=== PATIENT | male | born 1950 | race Caucasian/White ===

== ENCOUNTER 2017-03-11 15:30 | Emergency (ER) | payer BC ==
[~2017-03-11] VITALS: Ht 182.9 cm; Wt 87.9 kg
[~2017-03-11 15:30] MED LIST: ALBINS/ INH; ALBUAER2 INH; ANORO INH; ASTN NAE; ATEN-173 PEG; CHOL1000 PO; LANS30CA12 PEG; LISI-789 PEG; LORA10TA5 PEG; METF500T5 PEG; NUTRLIQ61 PEG; RANI300T2 PEG; SIMV20TA2 PEG
[2017-03-11 15:37] VITALS: TEMP 36.5; Ht 182.9 cm; Wt 87.9 kg
[2017-03-11] MEDS ORDERED: LIDO/EPINEPHRINE/SOD BICARB 20 ML VIAL INFIL ONE (15:47)
[2017-03-11] MEDS ORDERED: LIDOCAINE/EPINEPHRINE 1% 20 ML VIAL INFIL ONE (16:00)
--- NOTE | 2017-03-11 17:04 | DIAGNOSTIC IMAGING REPORT ---
CT HEAD WITHOUT CONTRAST (CT) CLINICAL HISTORY: Head pain status post trauma COMPARISON STUDY: 08/26/2016 TECHNIQUE: Axial CT of the brain is performed from the vertex to the skull base. IV contrast was not administered for this examination. CT DOSE: 614.27 mGy.cm FINDINGS: No intra or extra-axial mass lesions are visualized. There is no CT evidence of acute cortical infarction. There is no evidence of midline shift. There is no acute hemorrhage. No calvarial fractures are visualized. There are minimal white matter hypodensities likely on a small vessel basis. There is no evidence of pathologic ventricular dilatation. There is an incidental cavum septum posterior and cavum vergae There is no evidence of acute sinusitis. There is mild scalp edema involving the right parietal vertex. There is a small soft tissue laceration involving the frontal vertex. IMPRESSION: No acute intracranial findings Electronically signed by: Sampson Andrew M.D. 03/11/2017 5:03 PM Dictated Date/Time: 03/11/2017 5:00 PM
--- NOTE | 2017-03-11 17:27 | EMERGENCY ROOM VISIT NOTE ---
History First contact with patient: 15:40 Chief Complaint: FALL Stated Complaint: FELL History of Present Illness The patient is a 66 year old male who presents to the Emergency Room with complaints of fall. The patient was at work and was walking toward a file cabinet and tripped over his own feet and fell into the file cabinet. He sustained a large laceration to the face and head. The patient denies striking his head on the floor. He denies any loss of consciousness, nausea or vomiting. He denies any extremity pain or weakness. He denies syncope. She denies any chest pain or trouble breathing. His tetanus is up-to-date. Review of Systems A 10 system review of systems was completed with positives and pertinent negatives listed in the HPI. Past Medical/Surgical History Medical Problems: (1) Aspiration pneumonia (2) HTN (hypertension) (3) Percutaneous endoscopic gastrostomy (4) Tongue cancer Family History FH: cancer Social History Smoking Status: Never Smoker Marital Status: Housing Status: lives with family Occupation Status: employed Current/Historical Medications Scheduled Atenolol (Tenormin), 25 MG PEG QAM Azelastine Hcl (Astelin Nasal [place]), 1 SPRAY FRANDY BID Cholecalciferol (Vitamin D3), 1 TAB PO QAM Enteral Nutrition Formula (Peptamen 1.5), 1 CAN PEG 5XD Lansoprazole (Prevacid), 30 MG PEG QAM Lisinopril (Zestril), 1 TAB PEG QAM Loratadine (Claritin), 10 MG PEG QAM Metformin Hcl Er (Glucophage Er), 500 MG PEG QAM Simvastatin (Zocor), 20 MG PEG QAM Scheduled PRN Albuterol Sulf (Proventil 0.083% 2.5MG/3ML), 2.5 MG INH Q6H PRN for Shortness of Breath Ranitidine Hcl (Zantac), 300 MG PEG HS PRN for ACID REFLUX Allergies Coded Allergies: Bee Venom (Verified Allergy, Severe, HIVES, 04/01/16) Shellfish (Verified Allergy, Intermediate, unkn, 04/01/16) NO KNOWN DRUG ALLERGIES (Verified Allergy, Unknown, ., 04/01/16) Physical Exam Vital Signs Date Time Temp Pulse Resp B/P Pulse Ox O2 Delivery O2 Flow Rate FiO2 03/11/17 17:40 61 18 152/100 98 03/11/17 15:37 36.5 67 18 147/95 97 Room Air Physical Exam VITALS: Vitals are noted on the nurse's note and reviewed by myself. Vital signs stable. GENERAL: This is a 66-year-old male, in no acute distress, nondiaphoretic, well- developed well-nourished. SKIN: The skin was without rashes, erythema, edema, or bruising. There is a very large, 10 cm linear laceration that extends over the center of the forehead and back into the scalp. There is moderate bleeding. The edges gape with traction. There is no tenting of the skin. Capillary reflex less than 2 seconds. HEAD: Normocephalic atraumatic. EARS: External auditory canals clear, tympanic membranes pearly mercado without erythema or effusion bilaterally. No hemotympanum. No greer sign. No mastoid tenderness. EYES: Pupils equal round and reactive to light and accommodation. Conjunctivae without injection, sclerae without icterus. Extraocular movements intact. NOSE: Patent, turbinates without inflammation or discharge. No sinus tenderness. No septal hematoma or bleeding. FACE: No facial tenderness. The left side the face is paralyzed at this is baseline for the patient. MOUTH: Mucous membranes moist. NECK: Supple without nuchal rigidity. Cervical spine is nontender. Full range of motion of the neck without tenderness. No JVD. HEART: Regular rate and rhythm without murmurs gallops or rubs. LUNGS: Clear to auscultation bilaterally without wheezes, rales or rhonchi. No retractions or accessory muscle use. No chest tenderness. MUSCULOSKELETAL: No muscle atrophy, erythema, or edema noted. Full range of motion without joint tenderness in all extremities. No tenderness to palpation. Normal gait. Strength 5/5 throughout. NEURO: Patient was alert and oriented to person place and time. Normal Mini- Mental status exam. No focal neurological deficits. Medical Decision & Procedures ER Provider Diagnostic Interpretation: CT HEAD WITHOUT CONTRAST (CT) CLINICAL HISTORY: Head pain status post trauma COMPARISON STUDY: 08/26/2016 TECHNIQUE: Axial CT of the brain is performed from the vertex to the skull base. IV contrast was not administered for this examination. CT DOSE: 614.27 mGy.cm FINDINGS: No intra or extra-axial mass lesions are visualized. There is no CT evidence of acute cortical infarction. There is no evidence of midline shift. There is no acute hemorrhage. No calvarial fractures are visualized. There are minimal white matter hypodensities likely on a small vessel basis. There is no evidence of pathologic ventricular dilatation. There is an incidental cavum septum posterior and cavum vergae There is no evidence of acute sinusitis. There is mild scalp edema involving the right parietal vertex. There is a small soft tissue laceration involving the frontal vertex. IMPRESSION: No acute intracranial findings Procedure A large 10 cm laceration to the head was repaired. Using sterile technique the wound was cleaned with Betadine. The area was sterilely draped. 6 ml of 1% buffered lidocaine with epinephrine was used to anesthetize the skin. Once the patient was numb, the wound was copiously irrigated under pressure with sterile saline. The wound was explored and there were no deep structures such as tendons, bone, or ligaments present. The laceration was repaired using 17 simple interrupted 6-0 nylon sutures with the wound edges being well approximated. The patient tolerated the procedure well. The bleeding stopped. The area was cleaned with sterile saline and dressed with bacitracin ointment and bandage. ED Course The patient was seen and examined. Previous visits were reviewed. CT scan was obtained as above. There is no evidence for intracranial bleeding or skull fracture. The patient had a very large linear laceration to the forehead that extended into the scalp. It was repaired as above. The patient's was concerned that he lost blood. The patient stated he felt he was fine and did not wish to have blood work done. The patient should have the sutures removed in 6-7 days. He should return to the ER with any worsening symptoms, redness, swelling, warmth, fever, drainage of pus. Medical Decision The differential diagnosis includes intracranial bleeding, skull fracture, contusion, laceration, concussion, among others Impression Primary Impression: Facial laceration Additional Impression: CHI (closed head injury) Departure Information Dispostion Home / Self-Care Condition GOOD Referrals Vinayak Dumont III, M.D. (PCP) Patient Instructions My [facility] Additional Instructions Keep wound clean and dry. Do not allow any crusting or dried blood to accumulate on sutures. If this occurs, use a 1:1 solution of hydrogen peroxide/ water on a Q-tip to clean the wound. Use an antibiotic ointment for 3-4 days, then let wound dry. Suture removal in 7 days. Return sooner for any signs of infection (increasing redness, swelling, drainage). Ice and elevate for swelling and pain. Keep covered when in sun until sutures removed then SPF 50 or higher for one year. Vitamin E oil if desired two weeks after suture removal for reduction of scar. Return with any vomiting, change in mental status, severe headache or generalized worsening symptoms Problem Qualifiers
[2017-03-11 17:40] VITALS: BP 152/100; PULSE 61; O2SAT 98
[2017-03-20] MEDS ORDERED: ATV/1 PO (09:58)
[2017-03-20] MEDS ORDERED: AMOX1SUS4 PO (09:58)
== END 2017-03-11 17:50 | disposition home or self-care (01) ==
LOC: C.EDB 15:35 → C.EDD 17:50
DX: S01.81XA Laceration without foreign body of other part of head, initial encounter (principal); S09.90XA Unspecified injury of head, initial encounter; W01.198A Fall on same level from slipping, tripping and stumbling with subsequent striking against other object, initial encounter; Y99.0 Civilian activity done for income or pay; I10 Essential (primary) hypertension; Z85.09 Personal history of malignant neoplasm of other digestive organs

== ENCOUNTER 2017-03-18 11:10 | Observation (INO) | payer BC ==
[~2017-03-18] VITALS: Ht 182.9 cm; Wt 83.0 kg
[~2017-03-18 11:10] MED LIST changes: -ALBUAER2 INH; -ANORO INH
[2017-03-18] MEDS ORDERED: SODIUM CHLORIDE 0.9% 1000ML 500 ML IV STA (11:36)
[2017-03-18 11:58] LABS: BASO % 0.1 %; BASO ABS # 0.02 K/uL (0-0.2); COMPLETE YES; EOS % 0.1 %; IG% 0.3 %; LYMPH % 4.4 %; LYMPH ABS # 0.95 K/uL (1.2-3.4); MEAN CELL VOLUME 87.9 fL (80-100); MEAN CORPUSCULAR HEMOGLOBIN 32.8 pg (25-34); MEAN CORPUSCULAR HGB CONC 37.4 g/dl (32-36); MEAN PLATELET VOLUME 8.6 fL (7.4-10.4); MONO % 10.5 %; NEUT % 84.6 %; PLATELET COUNT 342 K/uL (130-400); RED BLOOD COUNT 4.78 M/uL (4.7-6.1); WHITE BLOOD COUNT 21.53 K/uL (4.8-10.8)
--- NOTE | 2017-03-18 12:00 | DIAGNOSTIC IMAGING REPORT ---
CHEST ONE VIEW PORTABLE CLINICAL HISTORY: EVALUATE ALTERED MENTAL STATUS/WEAKNESS dyspnea COMPARISON STUDY: 08/26/2016 FINDINGS: The bones soft tissues and hemidiaphragms are normal. The cardiomediastinal silhouette is normal. The lungs are clear. The pulmonary vasculature is normal. IMPRESSION: Negative chest. Electronically signed by: Dima Jones M.D. 03/18/2017 11:59 AM Dictated Date/Time: 03/18/2017 11:58 AM
[2017-03-18 12:09] LABS: PARTIAL THROMBOPLASTIN RATIO 1.1; PROTHROMBIN TIME (PATIENT) 10.9 SECONDS (9.0-12.0)
--- NOTE | 2017-03-18 12:10 | DIAGNOSTIC IMAGING REPORT ---
HEAD CT NONCONTRAST CT DOSE: 638.56 mGycm HISTORY: Mental status change EVALUATE ALTERED MENTAL STATUS/WEAKNESS TECHNIQUE: Multiaxial CT images of the head were performed without the use of intravenous contrast. Comparison: None. Findings: The paranasal sinuses and mastoid air cells are clear. The calvarium and skull base are intact. The ventricles and sulci are within normal limits. There is no mass, hematoma, midline shift, or acute infarct. Impression: No acute intracranial abnormality. No change from the prior study. Electronically signed by: Dima Jones M.D. 03/18/2017 12:08 PM Dictated Date/Time: 03/18/2017 12:06 PM
[2017-03-18 12:16] LABS: ALT/SGPT 27 U/L (12-78); AST/SGOT 13 U/L (15-37); BLOOD UREA NITROGEN 22 mg/dl (7-18); BUN/CREATININE RATIO 28.4 (10-20); CALCIUM 9.2 mg/dl (8.5-10.1); CARBON DIOXIDE 30 mmol/L (21-32); CHLORIDE 90 mmol/L (98-107); CREATININE 0.77 mg/dl (0.60-1.40); GLUCOSE 136 mg/dl (70-99); POTASSIUM 3.7 mmol/L (3.5-5.1); SODIUM 126 mmol/L (136-145)
[2017-03-18 12:26] LABS: ALB/GLOB RATIO 1.2 (0.9-2); ALKALINE PHOSPHATASE 74 U/L (45-117)
--- NOTE | 2017-03-18 12:44 | EMERGENCY ROOM VISIT NOTE ---
History Report prepared by [place]: Roshan Gentile Under the Supervision of: Dr. Rip Wilcox M.D. First contact with patient: 11:29 Chief Complaint: ILLNESS Stated Complaint: LACERATION LAST WK W/ SUTURE. TODAY W/ BLACK EYES History of Present Illness The patient is a 66 year old male who presents to the Emergency Room with complaints of increased unsteadiness today. The patient also noticed darkened skin around his eyes today which was not present previously. He has ringing in his ears at baseline which is worse today. The patient has had a cough producing phlegm. He denies fevers, headaches, or vomiting. He has not noticed any changes in his speech from baseline. The patient had a fall one week ago where he hit his head on a filing cabinet. He had a laceration on the top of the head sutured. He has not fallen since then. Source of History: patient Onset: today Position: other (global) Quality: other (unsteady) Timing: other (increased) Associated Symptoms: + cough, No fevers, No headache, No vomiting Review of Systems See HPI for pertinent positives & negatives. A total of 10 systems reviewed and were otherwise negative. Past Medical & Surgical Medical Problems: (1) Aspiration pneumonia (2) Aspiration pneumonia (3) HTN (hypertension) (4) Influenza (5) Percutaneous endoscopic gastrostomy (6) Tongue cancer Surgical Problems: (1) S/P cholecystectomy Family History FH: cancer Social History Smoking Status: Former Smoker Marital Status: Housing Status: lives with family Occupation Status: employed Current/Historical Medications Scheduled Atenolol (Tenormin), 25 MG PEG QAM Azelastine Hcl (Astelin Nasal [place]), 1 SPRAY FRANDY BID Cholecalciferol (Vitamin D3), 1 TAB PO QAM Enteral Nutrition Formula (Peptamen 1.5), 1 CAN PEG 5XD Lansoprazole (Prevacid), 30 MG PEG QAM Lisinopril (Zestril), 1 TAB PEG QAM Loratadine (Claritin), 10 MG PEG QAM Metformin Hcl Er (Glucophage Er), 500 MG PEG QAM Simvastatin (Zocor), 20 MG PEG QAM Scheduled PRN Albuterol Sulf (Proventil 0.083% 2.5MG/3ML), 2.5 MG INH Q6H PRN for Shortness of Breath Ranitidine Hcl (Zantac), 300 MG PEG HS PRN for ACID REFLUX Allergies Coded Allergies: Bee Venom (Verified Allergy, Severe, HIVES, 04/01/16) Shellfish (Verified Allergy, Intermediate, unkn, 04/01/16) NO KNOWN DRUG ALLERGIES (Verified Allergy, Unknown, ., 04/01/16) Physical Exam Vital Signs Date Time Temp Pulse Resp B/P Pulse Ox O2 Delivery O2 Flow Rate FiO2 03/18/17 13:12 86 20 101/69 99 Room Air 03/18/17 12:25 83 18 160/112 95 Room Air 82 127/83 83 101/69 03/18/17 12:20 84 03/18/17 11:16 36.8 82 16 108/66 96 Room Air Physical Exam GENERAL: Patient is in no acute distress. HEENT: Healing laceration to the top of the scalp without signs of infection, sutures in place. Some old contusion about the eyes especially medially. Moist mucous membranes, no nasal congestion. NECK: No stridor, no adenopathy, no meningismus, trachea is midline. LUNGS: Clear to auscultation bilaterally, no wheeze, no rhonchi, breath sounds equal. HEART: Without murmurs gallops or rubs, regular rate and rhythm. ABDOMEN: Soft, nontender, bowel sounds positive, no hernias, no peritonitis. EXTREMITIES: No cyanosis or edema, full range of motion of all the joints without pain or difficulty, no signs for acute trauma. NEUROLOGIC: Oriented x 3, no acute motor or sensory deficits, no focal weakness , no pronator drift, no cerebellar dysfunction. SKIN: No rash, no jaundice, no diaphoresis. Medical Decision & Procedures ER Provider Diagnostic Interpretation: Orthostatic vital signs are positive. Radiology results as stated below per my review and radiologist interpretation: CHEST ONE VIEW PORTABLE CLINICAL HISTORY: EVALUATE ALTERED MENTAL STATUS/WEAKNESS dyspnea COMPARISON STUDY: 08/26/2016 FINDINGS: The bones soft tissues and hemidiaphragms are normal. The cardiomediastinal silhouette is normal. The lungs are clear. The pulmonary vasculature is normal. IMPRESSION: Negative chest. Electronically signed by: Dima Jones M.D. 03/18/2017 11:59 AM Dictated Date/Time: 03/18/2017 11:[address] CT DOSE: 638.56 mGycm HISTORY: Mental status change EVALUATE ALTERED MENTAL STATUS/WEAKNESS TECHNIQUE: Multiaxial CT images of the head were performed without the use of intravenous contrast. Comparison: None. Findings: The paranasal sinuses and mastoid air cells are clear. The calvarium and skull base are intact. The ventricles and sulci are within normal limits. There is no mass, hematoma, midline shift, or acute infarct. Impression: No acute intracranial abnormality. No change from the prior study. Electronically signed by: Dima Jones M.D. 03/18/2017 12:08 PM Dictated Date/Time: 03/18/2017 12:06 PM Laboratory Results 03/18/17 11:40 Red Blood Count 4.78, Mean Corpuscular Volume 87.9, Mean Corpuscular Hemoglobin 32.8, Mean Corpuscular Hemoglobin Concent 37.4, Mean Platelet Volume 8.6, Neutrophils (%) (Auto) 84.6, Lymphocytes (%) (Auto) 4.4, Monocytes (%) (Auto) 10.5, Eosinophils (%) (Auto) 0.1, Basophils (%) (Auto) 0.1, Neutrophils # (Auto ) 18.20, Lymphocytes # (Auto) 0.95, Monocytes # (Auto) 2.27, Eosinophils # (Auto ) 0.02, Basophils # (Auto) 0.02 03/18/17 11:40 Test 03/18/17 11:40 03/18/17 12:15 03/18/17 12:44 White Blood Count 21.53 K/uL (4.8-10.8) Red Blood Count 4.78 M/uL (4.7-6.1) Hemoglobin 15.7 g/dL (14.0-18.0) Hematocrit 42.0 % (42-52) Mean Corpuscular Volume 87.9 fL (80-100) Mean Corpuscular Hemoglobin 32.8 pg (25-34) Mean Corpuscular Hemoglobin Concent 37.4 g/dl (32-36) Platelet Count 342 K/uL (130-400) Mean Platelet Volume 8.6 fL (7.4-10.4) Neutrophils (%) (Auto) 84.6 % Lymphocytes (%) (Auto) 4.4 % Monocytes (%) (Auto) 10.5 % Eosinophils (%) (Auto) 0.1 % Basophils (%) (Auto) 0.1 % Neutrophils # (Auto) 18.20 K/uL (1.4-6.5) Lymphocytes # (Auto) 0.95 K/uL (1.2-3.4) Monocytes # (Auto) 2.27 K/uL (0.11-0.59) Eosinophils # (Auto) 0.02 K/uL (0-0.5) Basophils # (Auto) 0.02 K/uL (0-0.2) RDW Standard Deviation 39.5 fL (36.4-46.3) RDW Coefficient of Variation 12.2 % (11.5-14.5) Immature Granulocyte % (Auto) 0.3 % Immature Granulocyte # (Auto) 0.07 K/uL (0.00-0.02) Prothrombin Time 10.9 SECONDS (9.0-12.0) Prothromb Time International Ratio 1.0 (0.9-1.1) Activated Partial Thromboplast Time 28.5 SECONDS (21.0-31.0) Partial Thromboplastin Ratio 1.1 Anion Gap 6.0 mmol/L (3-11) Est Creatinine Clear Calc Drug Dose 106.4 ml/min Estimated GFR () 111.2 Estimated GFR (Non- 95.9 BUN/Creatinine Ratio 28.4 (10-20) Calcium Level 9.2 mg/dl (8.5-10.1) Total Bilirubin 0.6 mg/dl (0.2-1) Aspartate Amino Transf (AST/SGOT) 13 U/L (15-37) Alanine Aminotransferase (ALT/SGPT) 27 U/L (12-78) Alkaline Phosphatase 74 U/L (45-117) Troponin I < 0.015 ng/ml (0-0.045) Total Protein 6.9 gm/dl (6.4-8.2) Albumin 3.7 gm/dl (3.4-5.0) Globulin 3.2 gm/dl (2.5-4.0) Albumin/Globulin Ratio 1.2 (0.9-2) Thyroid Stimulating Hormone (TSH) 1.860 uIu/ml (0.300-4.500) Urine Color DK YELLOW Urine Appearance CLEAR (CLEAR) Urine pH 7.0 (4.5-7.5) Urine Specific [place] 1.022 (1.000-1.030) Urine Protein NEG (NEG) Urine Glucose (UA) NEG (NEG) Urine Ketones TRACE (NEG) Urine Occult Blood NEG (NEG) Urine Nitrite NEG (NEG) Urine Bilirubin NEG (NEG) Urine Urobilinogen NEG (NEG) Urine Leukocyte Esterase NEG (NEG) Lactic Acid Level 1.2 mmol/L (0.4-2.0) Laboratory results reviewed by me. Medications Administered Medications (Trade) Dose Ordered Sig/Joey Route Start Time Stop Time Status Last Admin Dose Admin Sodium Chloride 500 ml @ 999 mls/hr Q31M STAT IV 03/18/17 11:36 03/18/17 12:06 DC 03/18/17 11:36 999 MLS/HR Sodium Chloride (Nss 1000ml) 1,000 ml @ 200 mls/hr Q5H STAT IV 03/18/17 12:50 03/18/17 17:49 03/18/17 12:50 200 MLS/HR ECG Indication: other (neuro symptoms) Rate (beats per minute): 77 Rhythm: normal sinus Findings: no acute ischemic change, no ectopy ED Course 1132: The patient was evaluated in room A12b. A complete history and physical exam was performed. 1136: NSS 500 ml @ 999 mls/hr. 1223: Orthostatic vital signs are positive. 1250: NSS 1000 ml @ 200 mls/hr. 1337: Updated the patient. He is willing to stay. He is currently receiving tube feeds. The patient's sutures will be removed by Kentrell Hernandez PA-C. 1341: Discussed the case with Dr. Wing, [facility] Hospitalist. The patient will be evaluated. Medical Decision Differential diagnosis includes intracranial bleeding, dehydration, anemia, electrolyte imbalance, infection, dysrhythmia, stroke. There is a significant leukocytosis at 21,000, this could be consistent with infection. No anemia. Renal panel testing shows hyponatremia, no kidney failure. There was no hepatitis. Urinalysis does not show infection. Brain CT shows no acute bleed or mass effect. Chest x-ray does not show pneumonia or CHF. EKG shows a sinus rhythm, no acute ischemia. On exam, there were no focal neurologic deficits to suggest stroke. The patient was not febrile or toxic. The patient appears to be in a euthyroid state. Lactic acid level is not elevated making severe sepsis less likely. Blood cultures are pending. Cardiac enzyme testing times one is not suggestive of acute cardiac injury. The patient presents with weakness and dizziness and feeling off balance. He is hyponatremic and dehydrated. He is orthostatic, his blood pressure dropped significantly with standing. I did speak with the patient, he feels better since being here in the emergency room. He has received IV saline. He has been able to give himself his typical tube feeds. Given the leukocytosis and his other findings, admission/observation was felt warranted. I spoke to the patient and to case management. The on-call hospitalist was consulted. Consults Time Called: 1330 Consulting Physician: Dr. Wing [facility] Hospitalist Returned Call: 1341 The patient will be evaluated. Impression Primary Impression: Weakness Additional Impressions: Hyponatremia Orthostasis Leukocytosis Scribe Attestation The scribe's documentation has been prepared under my direction and personally reviewed by me in its entirety. I confirm that the note above accurately reflects all work, treatment, procedures, and medical decision making performed by me. Departure Information Dispostion Being Evaluated By Hospitalist Referrals No Doctor, Assigned (PCP) Patient Instructions My [facility] Problem Qualifiers
[2017-03-18] MEDS ORDERED: SODIUM CHLORIDE 0.9% 1000ML 1,000 ML IV STA (12:50)
[2017-03-18 13:12] LABS: URINE APPEARANCE CLEAR (CLEAR); URINE BILIRUBIN NEG (NEG); URINE COLOR DK YELLOW; URINE NITRITE NEG (NEG); URINE SPECIFIC GRAVITY 1.022 (1.000-1.030); UROBILINOGEN NEG (NEG); ZZUR CULT IF INDIC CLEAN CATCH NO
[2017-03-18 13:19] LABS: MANUAL MICROSCOPIC REQUIRED? NO; REVIEW REQ? NO
--- NOTE | 2017-03-18 13:50 | EMERGENCY ROOM VISIT NOTE ---
ED Visit Note I was asked by Dr. Wilcox to remove the 17th sutures that were placed in the patient's head previously. There was a small amount of dried blood covering the wound, but there was adequate wound edge healing. 17 sutures were removed without difficulty. There were no separation of the wound edges. Patient was educated upon management of the wound.
[2017-03-18] MEDS ORDERED: PEPTAMEN 1.5 CAL 1000ML BAG PEG SCH ×2 (14:45→19:00)
[2017-03-18] MEDS ORDERED: ONDANSETRON INJ 2 MG/ML 2 ML VIAL IV PRN (14:45)
[2017-03-18] MEDS ORDERED: ALBUTEROL 0.083% NEBU SOLN 3 ML VIAL INH PRN (14:45)
[2017-03-18] MEDS ORDERED: RANITIDINE HCL 150 MG TAB GT PRN (14:45)
[2017-03-18] MEDS ORDERED: ACETAMINOPHEN 325 MG TAB PO PRN (14:45)
[2017-03-18] MEDS ORDERED: IV FLUIDS COMPLETED PRN (15:15)
--- NOTE | 2017-03-18 16:12 | HISTORY & PHYSICAL EXAMINATION ---
DATE OF ADMISSION: 03/18/2017 PRIMARY CARE PHYSICIAN: Vinayak Dumont MD CHIEF COMPLAINT: Dizziness and lightheadedness noted in doctor's office today. 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 Apparently has had a fall last Tuesday. It was a mechanical fall and he hit his head. He came to the Emergency Room. CAT scan was negative, but he did have laceration on the frontal aspect of the head that was sutured. His suture has to be removed today. He went to see his doctor and in the doctor's office, he was very dizzy and he was noted to have very low blood pressure and he was not feeling well. Apparently, he has not been feeling well for the last 2 days and the condition got worse. From doctor's office, he was sent into Emergency Room and in the ER he was noted to have a low sodium of 126 and he was very hypotensive, especially when tries to stand up, and also his white count noted to be 21,000, but no source of infection. Chest x-ray and the wound and UA examination unremarkable, but given the low sodium and dizziness and postural hypotension; he was admitted to medical floor for continuation of care. PAST MEDICAL HISTORY: Significant for malignant neoplasm of tonsillar fossa, head and neck, status post PEG tube placement for ongoing dysphagia; COPD, mild; hypertension; hyperlipidemia; and hypoglossal nerve paralysis. PAST SURGICAL HISTORY: Significant for PEG tube placement, cholecystectomy and vasectomy. SOCIAL HISTORY: He is . Quit smoking in 1979 with [id number] history of smoking. He does not use any alcohol and he has been reasonably ambulant. FAMILY HISTORY: Father had prostate cancer, at the age of 73. Mother with colon cancer, at the age of 79. Father had diabetes too. REVIEW OF SYSTEMS: CENTRAL NERVOUS SYSTEM: No headache, no blurred vision, no numbness or tingling in the extremities and no weakness in his head in particular. RESPIRATORY: No cough or phlegm. No shortness of breath. CARDIOVASCULAR: No chest pain, palpitation. MUSCULOSKELETAL: No acute arthritis in any joint generally. He did not have any rash and/or enlargement of glands. GENITOURINARY: Moves his bowels every 2-3 days, has not moved his bowels since Tuesday. No problem with urination. CENTRAL NERVOUS SYSTEM: Generally he does have weakness and some constitutional symptoms of tiredness and fatigue, but no fever. ALLERGIES: HE IS ALLERGIC TO BEE VENOM, SHELLFISH. MEDICATIONS: He has been on metformin, albuterol by nebulized solutions, Tenormin 25 mg daily, Astelin nasal spray as directed, vitamin D 1000 units daily, enteral nutritional formula 1 can 5 times a day, Prevacid 30 mg daily, lisinopril 2.5 mg daily, Claritin 10 mg daily, Zantac 300 mg daily, and simvastatin 20 mg daily. PHYSICAL EXAMINATION: GENERAL: On examination in the Emergency Room, he was not having any acute distress. VITAL SIGNS: Temperature 36.8, pulse was 86, blood pressure 101/69, saturation 99. He did have significant postural hypotension, blood pressure went down from 160-101, but there is no change in the heart rate. HEENT: Unremarkable. Head examinations, the sutures are removed from the frontal bone area, does not look like infected: NECK: Some deformity of the neck, but not significant. CHEST: Clear to auscultation bilaterally. HEART: S1, S2 regular. ABDOMEN: PEG tube in situ, benign, no masses. Bowel sounds present. EXTREMITIES: No edema. Peripheral pulses are palpable. A small linear cut brenda on the left patel area, but does not seem to be infected. CENTRAL NERVOUS SYSTEM: Alert, awake, oriented x3. LABORATORY DATA: Noted today white count was 21.53, H\T\H 15.7/42.0, platelet was 342. Sodium 126, potassium 3.7, chloride 90, BUN 22, carbon dioxide 30, creatinine 0.77, random glucose 136. LFTs unremarkable. TSH 1.8, troponin less than 0.01. PT/INR unremarkable. UA examination unremarkable. Chest x-ray, nothing acute. EKG was in sinus rhythm, rate of 77 per minute, normal axis and some nonspecific ST-T wave changes. Chest x-ray clear. IMPRESSION AND PLAN: 1. Hyponatremia. The cause at this moment most likely low intake. He did have diarrhea once on Tuesday. We will give normal saline infusion with some potassium and monitor for response, that may be causing the postural hypotension as well and he does have dehydration as well. 2. Postural hypotension, may be the cause for his weakness and dizziness. He seems to be dry intravascularly, so we will give some IV fluid and monitor his blood pressure. Blood pressure was on the upper side. We will continue with current medications. 3. History of head and neck cancer status post dysphagia and status post PEG tube. We will continue with the PEG tube feeding and medication through the PEG tube. 4. Gastrointestinal prophylaxis with ranitidine and Prevacid. 5. Deep venous thrombosis prophylaxis with subcutaneous heparin. 6. Code status. He is a full code. In my clinical judgment, the beneficiary meets criteria as per CMS for 2 midnight stay in the hospital. MTDD
[2017-03-18 18:40] VITALS: BP 145/96; PULSE 78; TEMP 36.8; O2SAT 94
[2017-03-18] MEDS: HEPARIN SOD 5000 UNIT/0.5 ML CARP SQ SCH (20:48)
[2017-03-18] MEDS: NSS + 20MEQ KCL 1000ML 1,000 ML IV SCH (20:52)
[2017-03-18 23:55] VITALS: BP 146/95; PULSE 81; TEMP 36.7; O2SAT 97
[2017-03-19] VITALS (8 sets, daily range): BP systolic 90–226; BP diastolic 56–129; PULSE 70–86; TEMP 36.7–36.8; O2SAT 94–98; Ht 182.9 cm; Wt 83.0 kg
[2017-03-19] MEDS: NSS + 20MEQ KCL 1000ML 1,000 ML IV SCH ×3 (03:37→18:08)
[2017-03-19] MEDS: PEPTAMEN 1.5 CAL 1000ML BAG PEG SCH ×5 (06:11→17:50)
[2017-03-19 07:25] LABS: BUN/CREATININE RATIO 26.2 (10-20); CALCIUM 8.4 mg/dl (8.5-10.1); CREATININE 0.65 mg/dl (0.60-1.40); MAGNESIUM 2.2 mg/dl (1.8-2.4)
[2017-03-19 08:09] LABS: HEMATOCRIT 39.9 % (42-52); MEAN CELL VOLUME 89.1 fL (80-100); MEAN CORPUSCULAR HEMOGLOBIN 32.1 pg (25-34); MEAN CORPUSCULAR HGB CONC 36.1 g/dl (32-36); MEAN PLATELET VOLUME 8.6 fL (7.4-10.4); PLATELET COUNT 287 K/uL (130-400); RED BLOOD COUNT 4.48 M/uL (4.7-6.1); WHITE BLOOD COUNT 11.13 K/uL (4.8-10.8)
[2017-03-19] MEDS: LANSOPRAZOLE SOLUTAB 30 MG PEG SCH (09:39)
[2017-03-19] MEDS: CHOLECALCIFEROL 1000 INTER.UNIT TAB PEG SCH (09:40)
[2017-03-19] MEDS: LISINOPRIL 2.5 MG TAB PEG SCH (09:40)
[2017-03-19] MEDS: SIMVASTATIN 20 MG TAB PEG SCH (09:41)
--- NOTE | 2017-03-19 09:55 | DIAGNOSTIC IMAGING REPORT ---
CHEST 2 VIEWS ROUTINE HISTORY: Dyspnea. COMPARISON: Chest 03/18/2017. FINDINGS: Left lung is clear. Patchy densities at the base of the right middle lobe. This has improved. The heart is normal in size. Cholecystectomy. No pleural effusions. No pneumothorax. IMPRESSION: Patchy densities within the base of the right middle lobe which have improved. This favors resolving atelectasis. However, a pneumonia could also have a similar appearance. One month chest x-ray follow-up is recommended to ensure complete resolution. Electronically signed by: Tayo Crespo M.D. 03/19/2017 9:54 AM Dictated Date/Time: 03/19/2017 9:51 AM
[2017-03-19] MEDS: HEPARIN SOD 5000 UNIT/0.5 ML CARP SQ SCH ×2 (09:59→21:20)
[2017-03-19] MEDS: LORATADINE 1 MG/1 ML PEG SCH (12:18)
[2017-03-19] MEDS: HydrALAZINE HCL 20 MG/ML VIAL IV. PRN ×2 (13:08→21:02)
--- NOTE | 2017-03-19 14:22 | DIAGNOSTIC IMAGING REPORT ---
Brain MRI WITH AND WITHOUT CONTRAST HISTORY: Right sided numbness R/O CVA TECHNIQUE: Multiplanar multisequence MRI of the brain was performed both before and after the intravenous administration of contrast. COMPARISON STUDY: Head CT 03/18/2017. FINDINGS: There is no mass, hematoma, midline shift, or acute infarct. The paranasal sinuses are clear. The mastoid air cells are clear. The ventricles and sulci demonstrate mild age-related involutional changes. A few foci of T2 hyperintensity seen within the periventricular and subcortical white matter are nonspecific but suggestive of minimal microvascular ischemic changes. The major vascular flow voids at the skull base are well-maintained. No abnormal enhancement. IMPRESSION: No acute intracranial abnormality. Electronically signed by: Tyao Crespo M.D. 03/19/2017 2:20 PM Dictated Date/Time: 03/19/2017 2:15 PM
--- NOTE | 2017-03-19 16:25 | Progress Note ---
Internal Med Progress Note Date of Service: March 19, 2017. Provider Documentation: SUBJECTIVE: Patient is seen and examined at bedside. He states having dizziness and says " My right side feels different" States having numbness and dizziness mainly since fall last week. MRI brain showed no acute findings. Also states having chest congestion. Family at bedside OBJECTIVE: Vital Signs-as noted below Physical Exam: General Appearance:Moderately built and nourished, no apparent distress Head: normocephalic, Atraumatic Eyes: normal inspection, EOMI, PERRL Neck: supple, Trachea midline Respiratory/Chest: Normal breath sounds, minimal creps at bases Cardiovascular: S1, S2, No murmur Abdomen/GI:Soft, Non tender, Bowel sounds present, +PEG tube Extremities/Musculoskelatal:normal inspection, no Neurologic/Psych:AAOX3, grossly no focal neurological deficits Skin: A small linear healing wound on left patel Lab data as noted below. ASSESSMENT & PLAN: Hyponatremia: Likely secondary to GI loses and Excess free water through Tube feeds Sodium levels improved Decreased IV fulids Monitor sodium levels Possible Aspiration pneumonia Start on Augmentin Aspiration precautions No signs of sepsis Dizziness/Postural hypotension: Likely secondary to dehydration Currently Hypertensive after IV fluids CT Head/Mri: No acute pathology May need ENT eval as outpatient as complains of tinnitus H/O Head and neck cancer: S/P radiation: Dysphagia S/P PEG tube Continue tube feeds Consult Dean Of [employer] HTN: Continue home meds Hydralazine PRN DVT px: SQ heparin Code status: full code Disposition: Plan to discharge in next 48 hours if stable Vital Signs: Date Time Temp Pulse Resp B/P Pulse Ox O2 Delivery O2 Flow Rate FiO2 03/19/17 15:00 36.8 72 18 164/103 98 Room Air 03/19/17 12:30 226/124 03/19/17 08:00 Room Air 03/19/17 07:38 36.7 86 20 158/97 94 03/19/17 02:01 36.8 78 145/96 Room Air 03/19/17 00:00 94 Room Air 03/18/17 23:55 36.7 81 20 146/95 97 Room Air 03/18/17 18:40 36.8 78 18 145/96 94 Room Air 03/18/17 18:05 80 20 114/72 94 03/18/17 16:35 78 21 142/85 96 Lab Results: Results Past 24 Hours Test 03/19/17 05:40 Range/Units White Blood Count 11.13 4.8-10.8 K/uL Red Blood Count 4.48 4.7-6.1 M/uL Hemoglobin 14.4 14.0-18.0 g/dL Hematocrit 39.9 42-52 % Mean Corpuscular Volume 89.1 80-100 fL Mean Corpuscular Hemoglobin 32.1 25-34 pg Mean Corpuscular Hemoglobin Concent 36.1 32-36 g/dl RDW Standard Deviation 40.3 36.4-46.3 fL RDW Coefficient of Variation 12.5 11.5-14.5 % Platelet Count 287 130-400 K/uL Mean Platelet Volume 8.6 7.4-10.4 fL Sodium Level 132 136-145 mmol/L Potassium Level 4.0 3.5-5.1 mmol/L Chloride Level 97 98-107 mmol/L Carbon Dioxide Level 27 21-32 mmol/L Anion Gap 8.0 3-11 mmol/L Blood Urea Nitrogen 17 7-18 mg/dl Creatinine 0.65 0.60-1.40 mg/dl Est Creatinine Clear Calc Drug Dose 126.0 ml/min Estimated GFR () 119.2 Estimated GFR (Non- 102.8 BUN/Creatinine Ratio 26.2 10-20 Random Glucose 115 70-99 mg/dl Calcium Level 8.4 8.5-10.1 mg/dl Magnesium Level 2.2 1.8-2.4 mg/dl
[2017-03-19] MEDS ORDERED: AMOXICILLIN/CLAVULANATE TAB 875 MG TAB PO SCH (17:00)
[2017-03-19] MEDS ORDERED: AMOXICILLIN/CLAVULANATE SUSP 250 MG/5 ML PO SCH (20:00)
[2017-03-19] MEDS: AMOXICILLIN/CLAVULANATE SUSP 250 MG/5 ML PO SCH (21:13)
[2017-03-19] MEDS ORDERED: LORAZEPAM 2 MG/ML 1 ML VIAL IV PRN (21:15)
[2017-03-19] MEDS: LORAZEPAM INJ 0.5 MG in SYRINGE 0.75 ML IV PRN (21:50)
[2017-03-20 00:15] VITALS: BP 133/87; PULSE 83; TEMP 36.7; O2SAT 98
[2017-03-20] MEDS: HydrALAZINE HCL 20 MG/ML VIAL IV. PRN (04:08)
[2017-03-20] MEDS: NSS + 20MEQ KCL 1000ML 1,000 ML IV SCH ×2 (04:14→07:13)
[2017-03-20 04:28] VITALS: BP 194/121
[2017-03-20] MEDS: LORAZEPAM INJ 0.5 MG in SYRINGE 0.75 ML IV PRN (04:42)
[2017-03-20] MEDS: AMOXICILLIN/CLAVULANATE SUSP 250 MG/5 ML PO SCH (06:15)
[2017-03-20] MEDS: PEPTAMEN 1.5 CAL 1000ML BAG PEG SCH ×3 (06:15→11:47)
[2017-03-20 06:26] LABS: BUN/CREATININE RATIO 25.6 (10-20); CALCIUM 8.4 mg/dl (8.5-10.1); CREATININE 0.7 mg/dl (0.60-1.40)
[2017-03-20 06:33] VITALS: BP 132/72; PULSE 85
[2017-03-20] MEDS ORDERED: METFORMIN HCL 500 MG TAB PEG SCH (08:00)
[2017-03-20 08:34] VITALS: BP 166/99; PULSE 103; TEMP 36.4; O2SAT 95
[2017-03-20 09:04] VITALS: BP 158/93; PULSE 102
[2017-03-20] MEDS: LORATADINE 1 MG/1 ML PEG SCH (09:05)
[2017-03-20] MEDS: LANSOPRAZOLE SOLUTAB 30 MG PEG SCH (09:07)
[2017-03-20] MEDS: CHOLECALCIFEROL 1000 INTER.UNIT TAB PEG SCH (09:08)
[2017-03-20] MEDS: LISINOPRIL 2.5 MG TAB PEG SCH (09:09)
[2017-03-20] MEDS: SIMVASTATIN 20 MG TAB PEG SCH (09:09)
[2017-03-20] MEDS: HEPARIN SOD 5000 UNIT/0.5 ML CARP SQ SCH (09:35)
--- NOTE | 2017-03-20 09:43 | Progress Note ---
Internal Med Progress Note Date of Service: March 20, 2017. Provider Documentation: SUBJECTIVE: Patient is seen and examined at bedside. States feeling much better. Dizziness resolved. Chest congestion improved. States having anxiety since fall. Denies chest pain, SOB. Offers no other complaints. Family at bedside OBJECTIVE: Vital Signs-as noted below Physical Exam: General Appearance:Moderately built and nourished, no apparent distress Head: normocephalic, Atraumatic Eyes: normal inspection, EOMI, PERRL Neck: supple, Trachea midline Respiratory/Chest: Normal breath sounds, CTA Cardiovascular: S1, S2, No murmur Abdomen/GI:Soft, Non tender, Bowel sounds present, +PEG tube Extremities/Musculoskelatal:normal inspection, no Neurologic/Psych:AAOX3, grossly no focal neurological deficits Skin: A small linear healing wound on left patel Lab data as noted below. ASSESSMENT & PLAN: Hyponatremia: Likely secondary to GI loses and Excess free water through Tube feeds Sodium levels improved: 134 DC IV fluids Monitor sodium levels Possible Aspiration pneumonia H/O Vocal cord paralysis Continue Augmentin Aspiration precautions No signs of sepsis Needs follow up with ENT as outpatient Dizziness/Postural hypotension: Likely secondary to dehydration/Sodium levels CT Head/Mri: No acute pathology Needs ENT eval as outpatient as complains of tinnitus BP labile like anxiety contributing to it. H/O Head and neck cancer: S/P radiation: Dysphagia S/P PEG tube Continue tube feeds Consult Bromination Equipment Operator HTN: Continue home meds Hydralazine PRN Labile likely secondary to anxiety Start on Ativan PRN DVT px: SQ heparin Code status: full code Disposition: Plan to discharge home today Follow up with in 1 week as advised. Please call for appointment if you don't receive call from 's Office. Follow up with Field Artillery Cannoneer, your Neurologist and Bromination Equipment Operator as advised Complete the antibiotic course as prescribed Seek immediate medical attention if your symptoms reoccur or worsen Vital Signs: Date Time Temp Pulse Resp B/P Pulse Ox O2 Delivery O2 Flow Rate FiO2 03/20/17 09:04 102 158/93 03/20/17 08:34 36.4 103 20 166/99 95 03/20/17 06:33 85 132/72 03/20/17 04:28 194/121 03/20/17 00:15 36.7 83 18 133/87 98 Room Air 03/19/17 23:59 Room Air 03/19/17 22:30 73 92/56 03/19/17 20:50 198/129 03/19/17 20:00 Room Air 03/19/17 17:48 71 108/69 70 106/70 72 90/56 03/19/17 16:00 Room Air 03/19/17 15:00 36.8 72 18 164/103 98 Room Air 03/19/17 12:30 226/124 Lab Results: Results Past 24 Hours Test 03/20/17 05:12 Range/Units Sodium Level 134 136-145 mmol/L Potassium Level 4.0 3.5-5.1 mmol/L Chloride Level 100 98-107 mmol/L Carbon Dioxide Level 27 21-32 mmol/L Anion Gap 7.0 3-11 mmol/L Blood Urea Nitrogen 18 7-18 mg/dl Creatinine 0.70 0.60-1.40 mg/dl Est Creatinine Clear Calc Drug Dose 117.0 ml/min Estimated GFR () 115.6 Estimated GFR (Non- 99.7 BUN/Creatinine Ratio 25.6 10-20 Random Glucose 136 70-99 mg/dl Calcium Level 8.4 8.5-10.1 mg/dl
[2017-03-20] MEDS ORDERED: ATV/1 PO (09:58)
[2017-03-20] MEDS ORDERED: AMOX1SUS4 PO (09:58)
--- NOTE | 2017-03-20 10:03 | Discharge Summary ---
Discharge Summary Date of Service March 20, 2017. Discharge Summary Admission Date: March 18, 2017 at 14:43 Discharge Date: March 20, 2017 Discharge Disposition: Home Principal Diagnosis: Hyponatremia, Possible Aspiration Pneumonia Procedures: MRI Dane: No acute intracranial abnormality. CXR: Patchy densities within the base of the right middle lobe which have improved. This favors resolving atelectasis. However, a pneumonia could also have a similar appearance. One month chest x-ray follow-up is recommended to ensure complete resolution. Consultations: None Pending Studies/Follow-Up: Follow up with in 1 week as advised. Please call for appointment if you don't receive call from 's Office. Follow up with Paint Line Supervisor, your Neurologist and Underwriting Analyst as advised Complete the antibiotic course as prescribed Seek immediate medical attention if your symptoms reoccur or worsen Medication Reconciliation New Medications: Lorazepam (Ativan) 1 Mg Tab 0.5 MG PO TID PRN for Anxiety/Agitation for 7 Days, #10 TAB Amoxicillin & Pot Clavulanate (Amoxicillin/Clavulanate P) 1 Gerri Gerri 500 MG PO Q8 for 6 Days, #3 BTL Take 10ml via PEG tube every 8 hours for 6 days Continued Medications: Albuterol Sulf (Proventil 0.083% 2.5MG/3ML) 2.5 Mg/3 Ml Nebu 2.5 MG INH Q6H PRN for Shortness of Breath, EA Atenolol (Tenormin) 25 Mg Tab 25 MG PEG QAM, TAB Azelastine Hcl (Astelin Nasal Deshler) 200 Sprays/30 Ml Deshler 1 SPRAY FRANDY BID, #30 Cholecalciferol (Vitamin D3) 1,000 Unit Tab 1 TAB PO QAM for 90 Days, #90 TAB 3 Refills Enteral Nutrition Formula (Peptamen 1.5) 1 Can Liqd 1 CAN PEG 5XD, CAN Lansoprazole (Prevacid) 30 Mg Capcr 30 MG PEG QAM, CAP Lisinopril (Zestril) 2.5 Mg Tab 1 TAB PEG QAM Loratadine (Claritin) 10 Mg Tab 10 MG PEG QAM, TAB Metformin Hcl Er (Glucophage Er) 500 Mg Tab 500 MG PEG QAM, TAB Ranitidine Hcl (Zantac) 300 Mg Tab 300 MG PEG HS PRN for ACID REFLUX, TAB Simvastatin (Zocor) 20 Mg Tab 20 MG PEG QAM, TAB Admission Information HPI (per Admitting provider): CHIEF COMPLAINT: Dizziness and lightheadedness noted in doctor's office today. 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 Apparently has had a fall last Tuesday. It was a mechanical fall and he hit his head. He came to the Emergency Room. CAT scan was negative, but he did have laceration on the frontal aspect of the head that was sutured. His suture has to be removed today. He went to see his doctor and in the doctor's office, he was very dizzy and he was noted to have very low blood pressure and he was not feeling well. Apparently, he has not been feeling well for the last 2 days and the condition got worse. From doctor's office, he was sent into Emergency Room and in the ER he was noted to have a low sodium of 126 and he was very hypotensive, especially when tries to stand up, and also his white count noted to be 21,000, but no source of infection. Chest x-ray and the wound and UA examination unremarkable, but given the low sodium and dizziness and postural hypotension; he was admitted to medical floor for continuation of care. Physical Exam (per Admitting): PHYSICAL EXAMINATION: GENERAL: On examination in the Emergency Room, he was not having any acute distress. VITAL SIGNS: Temperature 36.8, pulse was 86, blood pressure 101/69, saturation 99. He did have significant postural hypotension, blood pressure went down from 160-101, but there is no change in the heart rate. HEENT: Unremarkable. Head examinations, the sutures are removed from the frontal bone area, does not look like infected: NECK: Some deformity of the neck, but not significant. CHEST: Clear to auscultation bilaterally. HEART: S1, S2 regular. ABDOMEN: PEG tube in situ, benign, no masses. Bowel sounds present. EXTREMITIES: No edema. Peripheral pulses are palpable. A small linear cut brenda on the left patel area, but does not seem to be infected. CENTRAL NERVOUS SYSTEM: Alert, awake, oriented x3. Hospital Course Hyponatremia: Likely secondary to GI loses and Excess free water through Tube feeds Sodium levels improved: 134 DC IV fluids Monitor sodium levels Possible Aspiration pneumonia H/O Vocal cord paralysis Continue Augmentin Aspiration precautions No signs of sepsis Needs follow up with ENT as outpatient Dizziness/Postural hypotension: Likely secondary to dehydration/Sodium levels CT Head/Mri: No acute pathology Needs ENT eval as outpatient as complains of tinnitus BP labile like anxiety contributing to it. H/O Head and neck cancer: S/P radiation: Dysphagia S/P PEG tube Continue tube feeds Consult Underwriting Analyst HTN: Continue home meds Hydralazine PRN Labile likely secondary to anxiety Start on Ativan PRN DVT px: SQ heparin Code status: full code Disposition: Plan to discharge home today Follow up with in 1 week as advised. Please call for appointment if you don't receive call from 's Office. Follow up with Paint Line Supervisor, your Neurologist and Underwriting Analyst as advised Complete the antibiotic course as prescribed Seek immediate medical attention if your symptoms reoccur or worsen Total time spent on discharge = 35 minutes This includes examination of the patient, discharge planning, medication reconciliation, and communication with other providers. Discharge Instructions Discharge Instructions Date of Service March 20, 2017. Admission Reason for Admission: Hyponatremia, Orthostasis, Weakness Discharge Discharge Diagnosis / Problem: Hyponatremia, Possible Aspiration Pneumonia Discharge Goals Goal(s): Decrease discomfort, Improve function Activity Recommendations Activity Limitations: resume your previous activity Exercise/Sports Limitations: as tolerated . Instructions / Follow-Up Instructions / Follow-Up Follow up with in 1 week as advised. Please call for appointment if you don't receive call from 's Office. Follow up with Paint Line Supervisor, your Neurologist and Underwriting Analyst as advised Complete the antibiotic course as prescribed Seek immediate medical attention if your symptoms reoccur or worsen Current Hospital Diet Patient's current hospital diet: Discharge Diet Recommended Diet: N/A (Tube Feeds) Pending Studies Studies pending at discharge: no Medical Emergencies . Who to Call and When: Medical Emergencies: If at any time you feel your situation is an emergency, please call 911 immediately. . Non-Emergent Contact Non-Emergency issues call your: Primary Care Provider Call Non-Emergent contact if: you have a fever, your pain is not controlled, your pain is worsening, your pain is unusual for you, you have any medication questions If your symptoms reoccur or worsen . . "Provider Documentation" section prepared by Kenn Sosa. . VTE Core Measure Inpt VTE Proph given/why not?: Unfractionated heparin SQ
[2017-03-20 11:37] VITALS: BP 158/93; PULSE 102; TEMP 36.4; O2SAT 95
== END 2017-03-20 12:45 | disposition home or self-care (01) ==
LOC: ENRESERVDT → ENRESERVTM → C.EDB 11:13 → C.4E 14:43
PROVIDERS: ADMIT Internal Medicine; ATTEND Internal Medicine
DX: E87.1 Hypo-osmolality and hyponatremia (principal); J44.9 Chronic obstructive pulmonary disease, unspecified; I10 Essential (primary) hypertension; E78.5 Hyperlipidemia, unspecified; Z93.1 Gastrostomy status; Z48.02 Encounter for removal of sutures; Z98.52 Vasectomy status; Z91.013 Allergy to seafood; Z79.899 Other long term (current) drug therapy; Z87.891 Personal history of nicotine dependence; Z85.810 Personal history of malignant neoplasm of tongue; Z90.49 Acquired absence of other specified parts of digestive tract; Z80.42 Family history of malignant neoplasm of prostate

== ENCOUNTER 2017-12-10 04:41 | Inpatient (IN) | payer OTHER, BC ==
[2017-12-10] VITALS (7 sets, daily range): BP systolic 85–129; BP diastolic 56–70; PULSE 65–85; TEMP 36.4–36.9; O2SAT 93–99; Ht 180.3 cm; Wt 86.3 kg
[~2017-12-10] VITALS: Ht 180.3 cm; Wt 86.3 kg
[~2017-12-10 04:41] MED LIST changes: +AMOX1SUS4 PO; -LORA10TA5 PEG; +LORA10TA6 PEG
[2017-12-10] MEDS ORDERED: SODIUM CHLORIDE 0.9% 1000ML 500 ML IV ONE ×2 (05:22)
[2017-12-10] MEDS ORDERED: PIPERACILLIN/TAZOBACTAM 4.5 GM/100ML D5W IV STA (05:24)
[2017-12-10] MEDS ORDERED: ATV/1 SL (05:46)
[2017-12-10 06:01] LABS: BASO % 0.1 %; BASO ABS # 0.02 K/uL (0-0.2); EOS % 0.8 %; EOS ABS # 0.12 K/uL (0-0.5); HEMATOCRIT 42.3 % (42-52); HEMOGLOBIN 14.9 g/dL (14.0-18.0); IG# 0.03 K/uL (0.00-0.02); LYMPH % 6.9 %; MEAN CELL VOLUME 91.2 fL (80-100); MEAN CORPUSCULAR HEMOGLOBIN 32.1 pg (25-34); MEAN CORPUSCULAR HGB CONC 35.2 g/dl (32-36); MONO % 7.3 %; MONO ABS # 1.05 K/uL (0.11-0.59); NEUT % 84.7 %; PLATELET COUNT 175 K/uL (130-400); RED CELL DISTRIBUTION WIDTH CV 13.3 % (11.5-14.5); WHITE BLOOD COUNT 14.42 K/uL (4.8-10.8)
[2017-12-10] MEDS ORDERED: SODIUM CHLORIDE 0.9% 1000ML 1,000 ML IV STA ×3 (06:03→06:49)
[2017-12-10 06:09] LABS: ALBUMIN 3.2 gm/dl (3.4-5.0); CALCIUM 8.4 mg/dl (8.5-10.1); CREATININE 0.97 mg/dl (0.60-1.40); POTASSIUM 4.2 mmol/L (3.5-5.1)
[2017-12-10 06:11] LABS: PTT PATIENT 27.8 SECONDS (21.0-31.0)
[2017-12-10 06:12] LABS: TOTAL PROTEIN 6.6 gm/dl (6.4-8.2)
[2017-12-10] MEDS ORDERED: METHYLPREDNISOLONE IV 40 MG in SYRINGE 0 ML IV ONE (06:15)
[2017-12-10] MEDS ORDERED: ALBUT/IPRATROP 3MG/0.5MG NEB 3 ML VIAL INH STA (06:15)
[2017-12-10 06:25] LABS: INFLUENZA B ANTIGEN Neg for Influ B (NEG)
[2017-12-10] MEDS ORDERED: INSULIN GLARGINE SOLOSTAR 100 UNITS/ML 3 ML PEN SC ONE (06:51)
--- NOTE | 2017-12-10 06:58 | DIAGNOSTIC IMAGING REPORT ---
CHEST ONE VIEW PORTABLE CLINICAL HISTORY: Sepsis COMPARISON STUDY: Chest radiograph March 19, 2017. FINDINGS: Lung volumes are normal. No pneumothorax or pleural effusion is noted. There is right basilar airspace opacity suggestive of pneumonia. There is minimal left lower lung reticulonodular interstitial thickening. Cardiac size is normal. Mediastinal contours are normal. There is no evidence for pulmonary edema. IMPRESSION: 1. Right basilar opacity suggestive of pneumonia. Radiographic follow-up to ensure resolution is recommended. 2. Minimal left lower lung opacity which could reflect an infectious process or atelectasis. Electronically signed by: Nabil Singh M.D. 12/10/2017 6:57 AM Dictated Date/Time: 12/10/2017 6:56 AM
[2017-12-10] MEDS ORDERED: PROCHLORPERAZINE INJ 5 MG in SYRINGE 4 ML IV PRN (07:00)
[2017-12-10] MEDS ORDERED: GLUCAGON FOR INJ 1 MG VIAL SQ PRN (07:00)
[2017-12-10] MEDS: INSULIN ASPART 100 UNITS/ML 3 ML PEN SC SCH ×4 (07:00→21:00)
[2017-12-10] MEDS ORDERED: KETOROLAC TROMETHAMINE 15 MG/ML VIAL IV. PRN (07:00)
[2017-12-10] MEDS ORDERED: DEXTROSE 50% 50 ML SYR IV PRN (07:00)
[2017-12-10] MEDS ORDERED: LEVALBUTEROL/IPRATROPIUM NEB INH PRN (07:00)
[2017-12-10] MEDS ORDERED: ACETAMINOPHEN IV 650 MG in EMPTY BAG 0 ML IV PRN (07:00)
[2017-12-10] MEDS ORDERED: GLUCOSE 40% GEL 15 GM TUBE PO PRN (07:00)
[2017-12-10] MEDS ORDERED: HYDROmorphone INJ 0.5 MG/0.5 ML SYR IV PRN (07:00)
[2017-12-10] MEDS ORDERED: GLUCOSE 10 TABS/TUBE PO PRN (07:00)
[2017-12-10] MEDS ORDERED: DOXYCYCLINE IV 100 MG in DEXTROSE 5% 100ML 100 ML IV ONE (07:30)
[2017-12-10] MEDS ORDERED: SODIUM CHLORIDE 0.9% 1000ML 1,000 ML IV ONE (07:45)
[2017-12-10] MEDS ORDERED: SODIUM CHLORIDE 0.9% 1000ML 1,000 ML IV SCH (08:00)
[2017-12-10] MEDS: LANSOPRAZOLE SOLUTAB 30 MG PEG SCH (08:50)
[2017-12-10] MEDS: SIMVASTATIN 20 MG TAB PEG SCH (08:50)
[2017-12-10] MEDS: ENOXAPARIN 40 MG/0.4 ML SYR SC SCH (08:51)
--- NOTE | 2017-12-10 08:54 | Progress Note ---
Internal Med Progress Note Date of Service: Dec 10, 2017. Provider Documentation: SUBJECTIVE: Seen and examined at bedside Has chronic cough Denies SOB, chest pain, dizziness, abd pain Feels slightly better since hospitalization OBJECTIVE: Vital Signs-as noted below Physical Exam: General Appearance:Moderately built and nourished, no apparent distress Head: normocephalic, Atraumatic Eyes: normal inspection, EOMI, PERRL Neck: supple, Trachea midline Respiratory/Chest: Decreased breath sounds, B/L rhonchi, scattered wheezes Cardiovascular: S1, S2, No murmur Abdomen/GI:Soft, Non tender, Bowel sounds present, +Peg Tube Extremities/Musculoskelatal:normal inspection, no edema Neurologic/Psych:AAOX3, grossly no focal neurological deficits Skin: normal color, warm Lab data as noted below. 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 Right basilar opacity suggestive of pneumonia. Radiographic follow-up to ensure resolution is recommended. 2. Minimal left lower lung opacity which could reflect an infectious process or atelectasis. Outpatient CT scan (1 week Prior): 1. Mild diffuse bronchial wall thickening and bronchiectasis. Findings are most consistent with the clinical history of chronic aspiration. 2. Diffuse tree-in-bud and nodular airspace opacities, likely representing an infectious or inflammatory process, probably secondary to aspiration. 3. Soft tissue thickening in the right supraglottic region, which may reflect postsurgical changes of thyroplasty. Correlation with clinical history and outside imaging, if available , is recommended for further evaluation. Direct visual inspection and/or CT neck with contrast may also be of benefit. 4. Chronic and incidental findings as above. Vital Signs: Date Time Temp Pulse Resp B/P (MAP) Pulse Ox O2 Delivery O2 Flow Rate FiO2 12/10/17 08:25 36.6 85 16 85/56 93 Nasal Cannula 2.0 12/10/17 08:01 81 16 88/53 92 12/10/17 07:21 86 16 109/68 95 Nasal Cannula 2.0 12/10/17 07:01 83 23 85/52 94 12/10/17 06:57 84 21 80/48 93 12/10/17 06:52 80/52 12/10/17 06:48 82 23 68/49 95 12/10/17 06:47 77/49 12/10/17 06:46 76/51 12/10/17 06:45 86 27 77/53 94 12/10/17 06:34 92 24 92/56 96 Nasal Cannula 2.0 12/10/17 06:15 88 24 103/73 95 Nasal Cannula 2.0 12/10/17 06:01 92 27 92/55 93 Nasal Cannula 2.0 12/10/17 05:42 96 19 102/70 93 Nasal Cannula 2.0 12/10/17 05:08 99 24 92/58 92 Nasal Cannula 2.0 12/10/17 05:00 108 12/10/17 04:59 94 Nasal Cannula 2.0 12/10/17 04:58 94 Nasal Cannula 2.0 12/10/17 04:46 37.1 108 20 95/63 90 Room Air Lab Results: Results Past 24 Hours Test 12/10/17 05:28 12/10/17 05:30 12/10/17 05:36 12/10/17 06:30 Range/Units White Blood Count 14.42 4.8-10.8 K/uL Red Blood Count 4.64 4.7-6.1 M/uL Hemoglobin 14.9 14.0-18.0 g/dL Hematocrit 42.3 42-52 % Mean Corpuscular Volume 91.2 80-100 fL Mean Corpuscular Hemoglobin 32.1 25-34 pg Mean Corpuscular Hemoglobin Concent 35.2 32-36 g/dl Platelet Count 175 130-400 K/uL Mean Platelet Volume 8.0 7.4-10.4 fL Neutrophils (%) (Auto) 84.7 % Lymphocytes (%) (Auto) 6.9 % Monocytes (%) (Auto) 7.3 % Eosinophils (%) (Auto) 0.8 % Basophils (%) (Auto) 0.1 % Neutrophils # (Auto) 12.20 1.4-6.5 K/uL Lymphocytes # (Auto) 1.00 1.2-3.4 K/uL Monocytes # (Auto) 1.05 0.11-0.59 K/uL Eosinophils # (Auto) 0.12 0-0.5 K/uL Basophils # (Auto) 0.02 0-0.2 K/uL RDW Standard Deviation 44.0 36.4-46.3 fL RDW Coefficient of Variation 13.3 11.5-14.5 % Immature Granulocyte % (Auto) 0.2 % Immature Granulocyte # (Auto) 0.03 0.00-0.02 K/uL Prothrombin Time 10.4 9.0-12.0 SECONDS Prothromb Time International Ratio 1.0 0.9-1.1 Activated Partial Thromboplast Time 27.8 21.0-31.0 SECONDS Partial Thromboplastin Ratio 1.1 Sodium Level 131 136-145 mmol/L Potassium Level 4.2 3.5-5.1 mmol/L Chloride Level 96 98-107 mmol/L Carbon Dioxide Level 27 21-32 mmol/L Anion Gap 8.0 3-11 mmol/L Blood Urea Nitrogen 13 7-18 mg/dl Creatinine 0.97 0.60-1.40 mg/dl Est Creatinine Clear Calc Drug Dose 80.8 ml/min Estimated GFR () 94.6 Estimated GFR (Non- 81.6 BUN/Creatinine Ratio 13.9 10-20 Random Glucose 110 70-99 mg/dl Calcium Level 8.4 8.5-10.1 mg/dl Total Bilirubin 0.5 0.2-1 mg/dl Aspartate Amino Transf (AST/SGOT) 11 15-37 U/L Alanine Aminotransferase (ALT/SGPT) 31 12-78 U/L Alkaline Phosphatase 86 45-117 U/L Total Protein 6.6 6.4-8.2 gm/dl Albumin 3.2 3.4-5.0 gm/dl Globulin 3.4 2.5-4.0 gm/dl Albumin/Globulin Ratio 0.9 0.9-2 Procalcitonin 0.06 0-0.5 ng/ml Influenza Type A Antigen Neg for Influ A NEG Influenza Type B Antigen Neg for Influ B NEG Bedside Lactic Acid Venous 2.10 0.90-1.70 mmol/L Arterial Blood pH 7.41 7.35-7.45 Arterial Blood Partial Pressure CO2 41 35-46 mmHg Arterial Blood Partial Pressure O2 81 80-95 mm/Hg Arterial Blood HCO3 25 19-24 mmol/L Arterial Blood Oxygen Saturation 95.7 90-95 % Arterial Blood Base Excess 0.7 -9-1.8 mEq/L Arterial Blood Gas Delivery 2L Maury Test POS POS Lactic Acid Level 1.6 0.4-2.0 mmol/L Magnesium Level 1.6 1.8-2.4 mg/dl Thyroid Stimulating Hormone (TSH) 0.796 0.300-4.500 uIu/ml Test 12/10/17 08:55 Range/Units Bedside Glucose 136 70-99 mg/dl Microbiology Results 12/10/17 Blood Culture, Received Pending 12/10/17 Blood Culture, Received Pending 12/10/17 Gram Stain, Received Pending 12/10/17 Sputum Culture, Received Pending
[2017-12-10] MEDS ORDERED: PIPERACILL/TAZOBAC CONSULT ACTIVE PRN (09:00)
[2017-12-10] MEDS ORDERED: CONSULT PHARMACY SCH (09:00)
[2017-12-10] MEDS ORDERED: MAGNESIUM SULFATE 1GM / D5W 1 GM in PREMIXED IN D5W 100 ML IV ONE (09:00)
[2017-12-10 09:31] LABS: HEMOGLOBIN A1C 5.3 % (4.5-5.6)
[2017-12-10] MEDS: [UNRECOGNIZED DRUG - REMARK] SCH ×2 (09:36→21:00)
--- NOTE | 2017-12-10 10:03 | HISTORY & PHYSICAL EXAMINATION ---
DATE OF ADMISSION: 12/10/2017 PRIMARY CARE PHYSICIAN: Vinayak Dumont MD CHIEF COMPLAINT: Cough, fever, weakness. HISTORY OF PRESENT ILLNESS: History obtain from the patient, , and records. Medical history is significant for recurrent aspiration pneumonia sp PEG tube placement, COPD, past tobacco abuse, hypertension, DM2 on oral medications, prediabetes as per records on metformin, tonsillar cancer status post chemoradiation, Bobby's palsy as per records. Recent confinement in last March 2017 for possible aspiration pneumonia. Last few days, the patient noted to have chest tightness, cough, dry to wet productive yellow sputum, may have aspirated after an episode of reflux which he attributed to more than usual amount of tube feedings. Fevers and chills at home. Increasing shortness of breath. Denies flu-like symptoms. Patient brought to the Emergency Room. SBP initially 90s. Zosyn, IVF given for sepsis. As per patient's , blood pressure at home on the low side of late. Patient complaining of dizziness/lightheadedness symptoms when getting up. MEDICAL HISTORY: As above. In 2012, PFTs showed moderate obstruction. Last seen by [facility]mon[facility] about 2 weeks ago. As per note, given chronic recurrent aspirations, concern for bronchiectasis. Recommendation for updated PFTs, airway clearance regimen with albuterol nebs, CT chest. Outpatient CT chest in November 2017 showed mild diffuse bronchial wall thickening, bronchiectasis consistent with chronic aspiration, postsurgical changes right supraglottic. A 2D echo from November 2012 showed EF 65%, no significant pathology. SURGERIES: He has had PEG tube placement, cholecystectomy, and vasectomy. HOME MEDICATIONS: Include Claritin, Ativan, Prevacid, Glucophage, Zantac, Zocor, Proventil, aspirin, Tenormin, vitamin D3, Peptamen, Zestril. ALLERGIES: BEE VENOM AND SHELLFISH. FAMILY HISTORY: Family history of heart disease. PERSONAL AND SOCIAL HISTORY: Past tobacco abuse. REVIEW OF SYSTEMS: As per HPI, all 10 systems reviewed. All other ROS negative. PHYSICAL EXAMINATION: VITAL SIGNS: Blood pressure was noted to be 96/58, pulse rate 108, RR 24, temperature 37.1, sats 94 on 2 liters. GENERAL: Noted to be in minimal respiratory distress, unkempt SKIN: Warm, normal color. HEENT: [place] palpebral conjunctivae. No ptosis. Dry buccal mucosa. Old facial asymmetry. Nasal cannula in place NECK: Supple, nontender. CHEST: Occasional wheeze. No tenderness. HEART: Tachycardic. No murmur ABDOMEN: Some distension, nontender. PEG tube in place. EXTREMITIES: No edema, no tenderness. No gross deformities NEUROLOGIC: Coherent. No gross focality except for old facial asymmetry. LABORATORY AND DIAGNOSTIC STUDIES: Hemoglobin 14.9, white cell count is 14, platelets 175. Sodium noted to be 131, potassium 4.2, chloride 96, CO2 27, creatinine 0.9, glucose 110. Point of care lactic acid was noted to be 2.1. Repeat lactate 1.7 ABG; pH 7.41, pCO2 41, pO2 81, 95 on 2 liters. Hemoglobin A1c May 2015 was noted to be 4.8. Chest x-ray as per my interpretation infiltrate on the right. EKG as per my interpretation, rate 100, normal sinus rhythm, LAD, LAFB, poor R- wave progression. ASSESSMENT: 1. Acute hypoxemic respiratory failure secondary to chronic obstructive pulmonary disease exacerbation secondary to recurrent aspiration pneumonia. past hx Pseudomonas sputum CS 2. Possible sepsis secondary to above. 3. Hypertension. Patient's blood pressure is on the lower side of late. Patient's gives an account of orthostatic symptoms. 4. History of tonsillar cancer status post chemoradiation. 5. Hx aspiration risk sp PEG tube placement. 6. Prediabetes per records hemoglobin A1c 4. 5 last May 2015. 7. Past tobacco abuse PLAN: PCU supplemental O2. Cultures, Zosyn, Doxycycline for now aspiration precautions nebs, steroids. Pulmonary consult RE respiratory failure. COPD exacerbation. IV fluids. Hold antihypertensives for now given low blood pressure/orthostatic symptoms at home (Blood pressure may need to be held upon discharge from the hospital.) Hold tube feeds for now until BP stable. TTE RE hypotension rule out cardiac dysfunction Basal insulin, ISS BG 140-180. check hemoglobin A1c. DVT prophylaxis, Lovenox subQ. Full code. Total critical care time was 50 minutes. MTDD
[2017-12-10] MEDS: PIPERACILL/TAZOBAC IV 4.5 GM in DEXTROSE 5% 100ML IV SCH ×2 (11:04→17:56)
[2017-12-10] MEDS ORDERED: LEVALBUTEROL/IPRATROPIUM NEB INH SCH (12:00)
[2017-12-10] MEDS ORDERED: NURSING VERBAL MED ORDER ONE (12:15)
--- NOTE | 2017-12-10 12:26 | PULMONARY CONSULTATION ---
DATE OF CONSULTATION: 12/10/2017 TIME: 11:00 a.m. REPORT OF CONSULTATION: The patient was seen in room 107. He is a 67-year-old male who was admitted to the hospital with a chief complaint of severe shortness of breath. The patient states that suddenly around midnight, he felt severe shortness of breath and tightness. This was extremely bothersome to him. He does have a history of recurring aspiration and aspiration pneumonia. In that regard, he had tonsillar cancer diagnosed in 2003. This was treated with chemo and radiation. As a result of the radiation, he ultimately developed vocal cord paralysis on the right. He had a surgery to try and assist with the vocal cord. He had recurring problems with aspiration and a PEG tube was inserted approximately 2012. In spite of that, he has been getting recurring aspirations. Review of the records suggest that he had pneumonia, likely due to aspiration in December 2013, April 2014, November 2014, May 2015, June 2015, and March 2017. The patient relates that he does have heartburn and symptoms of reflux on a regular basis. He did not eat any foods recently that he would think might cause reflux, but he states that he overate on , December 08. The patient does not swallow at all. He has a PEG tube in place that he uses for all of his feedings. At the present time, he is feeling much more comfortable. He is not coughing to any substantial degree. He is not bringing up any phlegm. He did have some chills and he had a fever at home of 38.8. The patient carries a diagnosis of COPD. He states he has had pulmonary function testing done through [facility]. He recently saw a [facility] cut pressman. Apparently, there was some I believe that he may have bronchiectasis related to his recurring aspirations. This suggested on an outpatient CAT scan. PAST SURGICAL HISTORY: 1. PEG tube in 2012. 2. Cholecystectomy. 3. Vasectomy. 4. Vocal cord surgery. PAST MEDICAL HISTORY: 1. Hypertension. 2. Diabetes. 3. Tonsillar cancer. 4. Recurring aspiration. 5. COPD. 6. Bronchiectasis. 7. Bobby's palsy. 8. Significant laceration to the scalp in 2017. SOCIAL HISTORY: Tobacco, none since 1979. Previously, the patient smoked for about 10 years at 1 pack per day. Alcohol use is described as approximately 100 mL of alcohol per day via the PEG tube. FAMILY HISTORY: Mother age 78, rectal cancer. Father with emphysema, CVAs, and [place]. ALLERGIES: BEES AND SHELLFISH. No known medication allergies. 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 REVIEW OF SYSTEMS: Essentially negative except for the above-mentioned complaints. He does not believe that he has any postnasal drip or nasal congestion. He has had no bowel complaints. The only time he gets diarrhea is if he is on antibiotics. He denies myalgias or arthralgias. He does admit to having urinary frequency at night time, though he has never been diagnosed with an enlarged prostate. Total of 10 systems were reviewed. PHYSICAL EXAMINATION: GENERAL: The patient is a pleasant 67-year-old male who was cooperative, alert and oriented. His voice was somewhat husky. He has a scar on his scalp from prior laceration. VITAL SIGNS: Temperature is 36.6. The cardiac rate was 85. The blood pressure was 85/56. HEENT: Pupils were reactive. Mouth exam shows teeth in poor repair. There is asymmetry to that tongue. The patient relates that he feels numb in the tongue and in the lips and in the throat, especially on the right side. NECK: There is some asymmetry to the musculature of the neck with the right side seemingly having a little atrophy. LUNGS: Auscultation of the lung garcia reveals rales in the right lower lung field posteriorly. No wheezing was heard. He appeared very comfortable. Saturation was 95% on 2 liter nasal cannula. ABDOMEN: Inspection of the abdomen reveals a PEG in the upper abdominal region. Bowel sounds were present. There was no tenderness to palpation or masses. EXTREMITIES: Showed no cyanosis, clubbing or edema. Chest x-ray shows a right lower lobe infiltrate. This would be compatible with aspiration. LABORATORY DATA: White count is 14.42. Hemoglobin 14.9. Platelets 175,000. Coags were normal. Urinalysis was unremarkable. Flu test was negative. Blood gas showed a pH of 7.41 with a pCO2 of 41 and a pO2 of 81 done on 2 liters. Electrolytes show sodium 131, potassium 4.2, chloride 96, and bicarbonate 27. BUN is 13 with a creatinine of 0.97. Blood sugar was 110. Calcium 8.4. Liver functions were normal. Albumin was 3.2 with globulin 3.4. Procalcitonin was 0.06. TSH was 0.796. Sputum and blood cultures are pending. IMPRESSIONS: 1. Right lower lobe pneumonia secondary to aspiration. 2. Chronic obstructive pulmonary disease by history. 3. Bronchiectasis by history. COMMENTS AND RECOMMENDATIONS: The patient looks very stable right now. His medications ordered for him include Zosyn. I believe this would be the preferred drug for aspiration. His history is very strong and I am doubtful that he has an atypical infection. He is on levalbuterol and ipratropium. He is on prednisone 40 mg daily. He should simply have followup on the chest x-ray until clear. Thank you so much for asking me to assist in his care.
[2017-12-10] MEDS ORDERED: PEPTAMEN PEG PRN (12:30)
[2017-12-10] MEDS ORDERED: [UNRECOGNIZED DRUG - OTHER] PEG PRN (12:30)
--- NOTE | 2017-12-10 13:20 | ECHOCARDIOGRAM REPORT ---
*NOTICE TO RECEIVING LIBERTARIAN AGENCY This information is strictly Confidential and protected under [place] law. [place] law prohibits you from making any further disclosure of this information unless further disclosure is expressly permitted by the written consent of the person to whom it pertains or is authorized by law. A general authorization for the release of medical or other information is not sufficient for this purpose. Hospital accepts no responsibility if the information is made available to any other person, INCLUDING THE PATIENT. Interpretation Summary * Name: MONIQUE TRAN Study Date: 12/10/2017 11:05 AM BP: 109/68 mmHg * Patient Location: .MSICU\S\E107\S\1 HR: 86 * : 1950 (M/d/yyyy) Gender: Male Height: 71 in * Age: 67 yrs Ethnicity: CA Weight: 182 lb * Ordering Physician: Wale Roberts * Referring Physician: Self, Referred * Performed By: Reggie Francois RCS * * Reason For Study: Hypotension * BSA: 2.0 m2 * The study was technically adequate. * -- Conclusions -- * There is borderline concentric left ventricular hypertrophy. * The left ventricular wall motion is normal. * Left ventricular systolic function is normal. * The LV Ejection Fraction = 60-65%. * The right ventricle is normal size. * The right ventricular systolic function is normal as assessed by tricuspid annular plane systolic excursion (TAPSE) (normal >1.5 cm). * There is trace tricuspid regurgitation. * Doppler findings do not suggest pulmonary hypertension. * Grade I diastolic dysfunction, (abnormal relaxation pattern). Procedure Details * A complete two-dimensional transthoracic echocardiogram was performed (2D, M-mode, Doppler and color flow Doppler). Left Ventricle * The left ventricle is normal in size. * There is borderline concentric left ventricular hypertrophy. * Ejection Fraction = 60-65%. * Left ventricular systolic function is normal. * The left ventricular wall motion is normal. Right Ventricle * The right ventricle is normal size. * The right ventricular systolic function is normal as assessed by tricuspid annular plane systolic excursion (TAPSE) (normal >1.5 cm). Atria * The left atrial size is normal. * Right atrial size is normal. * There is no evidence of atrial septal defect, but resolution does not allow assessment for a patent foramen ovale. Mitral Valve * The mitral valve is normal. * There is no mitral valve stenosis. * Significant mitral regurgitation is absent. Tricuspid Valve * The tricuspid valve is normal. * There is no tricuspid stenosis. * Doppler findings do not suggest pulmonary hypertension. * There is trace tricuspid regurgitation. Aortic Valve * The aortic valve is trileaflet. * Aortic stenosis is absent. * There is no significant aortic regurgitation. Pulmonic Valve * The pulmonary valve is not well seen, but the Doppler examination is normal without significant regurgitation or stenosis. Great Vessels * The aortic root and proximal ascending aorta are normal sized. Pericardium/Pleural * There is no pericardial effusion. Great Vessels * Normal inferior vena cava diameter and respiratory variation suggests normal central venous pressure. Left Ventricular Diastolic Function * Grade I diastolic dysfunction, (abnormal relaxation pattern). MMode 2D Measurements and Calculations IVSd 1.1 cm IVSs 1.5 cm LVIDd 4.5 cm LVIDs 3.1 cm LVPWd 1.1 cm LVPWs 1.4 cm IVS/LVPW 1.0 FS 30.0 % EDV(Teich) 91.0 ml ESV(Teich) 38.7 ml EF(Teich) 57.4 % EDV(cubed) 89.3 ml ESV(cubed) 30.6 ml EF(cubed) 65.7 % % IVS thick 30.3 % % LVPW thick 34.5 % LV mass(C)d 170.4 grams LV mass(C)dI 84.1 grams/m\S\2 LV mass(C)s 155.5 grams LV mass(C)sI 76.7 grams/m\S\2 SV(Teich) 52.2 ml SI(Teich) 25.8 ml/m\S\2 SV(cubed) 58.7 ml SI(cubed) 29.0 ml/m\S\2 Ao root diam 3.8 cm Ao root area 11.6 cm\S\2 ACS 2.6 cm LA dimension 4.4 cm asc Aorta Diam 3.4 cm LA/Ao 1.1 EDV(MOD-sp4) 104.0 ml ESV(MOD-sp4) 44.0 ml EF(MOD-sp4) 57.7 % EDV(MOD-sp2) 125.0 ml ESV(MOD-sp2) 45.0 ml EF(MOD-sp2) 64.0 % SV(MOD-sp4) 60.0 ml SI(MOD-sp4) 29.6 ml/m\S\2 SV(MOD-sp2) 80.0 ml SI(MOD-sp2) 39.5 ml/m\S\2 Doppler Measurements and Calculations MV E max matt 85.2 cm/sec MV A max matt 80.9 cm/sec MV E/A 1.1 MV P1/2t max matt 95.8 cm/sec MV P1/2t 55.0 msec MVA(P1/2t) 4.0 cm\S\2 MV dec slope 510.2 cm/sec\S\2 MV dec time 0.19 sec Ao V2 max 112.2 cm/sec Ao max PG 5.0 mmHg Ao max PG (full) 1.2 mmHg LV V1 max PG 3.8 mmHg LV V1 max 98.0 cm/sec PA V2 max 84.6 cm/sec PA max PG 2.9 mmHg TR max matt 238.3 cm/sec
[2017-12-10] MEDS: LEVALBUTEROL 1.25MG/0.5ML NEB INH SCH ×2 (16:06→18:53)
[2017-12-10] MEDS: IPRATROPIUM BROMIDE NEB SOLN 0.02% 2.5 ML VIAL INH SCH ×2 (16:06→18:53)
[2017-12-10] MEDS: LORAZEPAM 2 MG/ML 1 ML VIAL IV PRN (22:28)
--- NOTE | 2017-12-10 22:45 | EMERGENCY ROOM VISIT NOTE ---
History Report prepared by [place]: Zulema Haider Under the Supervision of: Dr. Marti Rhoades D.O. First contact with patient: 05:21 Chief Complaint: FEVER Stated Complaint: SHAKING,TEMP HIGH,TROUBLE BREATHING,CHILLS History of Present Illness The patient is a 67 year old male who presents to the Emergency Room with complaints of a sudden fever starting 3.5 hours ago. The patient states that 5.5 hours ago he was experiencing shortness of breath. He states that it felt like his chest was tight. He states that it was worse when lying flat and better when sitting up. He reports that when he went to move to bed from the couch he had a fever of 38.7 and had chills. His reports that he was shaking. The patient denies abdominal pain. The patient notes a history of sepsis, pneumonia, and aspiration. He notes that he had an episode of reflux two days ago when he over fed himself with tube feeds. The patient notes he did get the flu vaccine. Source of History: patient, spouse/significant other Onset: 3.5 hours ago Position: other (global) Timing: other (sudden) Modifying Factors (Worsening): other (lying flat) Modifying Factors (Relieving): other (sitting up) Associated Symptoms: + chills, + SOB, No abdominal pain Note: The patient complains of shaking. Review of Systems See HPI for pertinent positives & negatives. A total of 10 systems reviewed and were otherwise negative. Past Medical & Surgical Medical Problems: (1) Aspiration pneumonia (2) Aspiration pneumonia (3) HTN (hypertension) (4) Influenza (5) Percutaneous endoscopic gastrostomy (6) Respiratory failure, acute (7) Tongue cancer Surgical Problems: (1) S/P cholecystectomy Family History FH: cancer Social History Smoking Status: Former Smoker Marital Status: Housing Status: lives with family Occupation Status: employed Current/Historical Medications Scheduled Atenolol (Tenormin), 25 MG PEG QAM Azelastine Hcl (Astelin Nasal [place]), 1 SPRAY FRANDY BID Cholecalciferol (Vitamin D3), 1 TAB PO QAM Enteral Nutrition Formula (Peptamen 1.5), 1 CAN PEG 5XD Lansoprazole (Prevacid), 30 MG PEG QAM Lisinopril (Zestril), 1 TAB PEG QAM Metformin Hcl Er (Glucophage Er), 500 MG PEG QAM Simvastatin (Zocor), 20 MG PEG QAM Scheduled PRN Albuterol Sulf (Proventil 0.083% 2.5MG/3ML), 2.5 MG INH Q6H PRN for Shortness of Breath Loratadine (Claritin), 10 MG PEG QAM PRN for allergy Lorazepam (Ativan), 1 MG SL DIRECTED PRN for anxiety Ranitidine Hcl (Zantac), 300 MG PEG HS PRN for ACID REFLUX Allergies Coded Allergies: Bee Venom (Verified Allergy, Severe, HIVES, 12/10/17) Shellfish (Verified Allergy, Intermediate, unkn, 12/10/17) NO KNOWN DRUG ALLERGIES (Verified Allergy, Unknown, ., 12/10/17) Physical Exam Vital Signs Date Time Temp Pulse Resp B/P (MAP) Pulse Ox O2 Delivery O2 Flow Rate FiO2 12/10/17 06:15 88 24 103/73 95 Nasal Cannula 2.0 12/10/17 06:01 92 27 92/55 93 Nasal Cannula 2.0 12/10/17 05:42 96 19 102/70 93 Nasal Cannula 2.0 12/10/17 05:08 99 24 92/58 92 Nasal Cannula 2.0 12/10/17 05:00 108 12/10/17 04:59 94 Nasal Cannula 2.0 12/10/17 04:58 94 Nasal Cannula 2.0 12/10/17 04:46 37.1 108 20 95/63 90 Room Air Physical Exam HEENT: Head - normocephalic and atraumatic Pupils are equal, round, and reactive to light. Extraocular eye muscles are intact, and sclera are anicteric. Nose - moist nasal mucosa without discharge. Mouth - moist buccal mucosa. Oropharynx is nonerythematous and there is no tonsillar exudate or edema noted. Neck: Supple; no JVD, nuchal rigidity, cervical lymphadenopathy. Heart: Regular rate and rhythm. There is a normal S1 and S2 with no murmurs, clicks, or gallops appreciated. Lungs: Diminished breath sounds in bilateral lung bases. No wheezes, rales, or rhonchi. Abdomen: Soft, completely nontender, nondistended, with good bowel sounds. There are no palpable pulsatile masses or hepatosplenomegaly. There is no guarding, rigidity, or rebound noted. Extremities: No evidence of cyanosis, clubbing, or edema. There are easily palpable peripheral pulses. Skin: hot and dry with good turgor and no rashes. Medical Decision & Procedures ER Provider Diagnostic Interpretation: CHEST X-RAY: The results were interpreted by me. Right basilar opacity consistent with pneumonia Laboratory Results 12/10/17 05:28 Red Blood Count 4.64, Mean Corpuscular Volume 91.2, Mean Corpuscular Hemoglobin 32.1, Mean Corpuscular Hemoglobin Concent 35.2, Mean Platelet Volume 8.0, Neutrophils (%) (Auto) 84.7, Lymphocytes (%) (Auto) 6.9, Monocytes (%) (Auto) 7.3, Eosinophils (%) (Auto) 0.8, Basophils (%) (Auto) 0.1, Neutrophils # (Auto) 12.20, Lymphocytes # (Auto) 1.00, Monocytes # (Auto) 1.05, Eosinophils # (Auto) 0.12, Basophils # (Auto) 0.02 12/10/17 05:28 Test 12/10/17 05:28 12/10/17 05:30 12/10/17 05:36 White Blood Count 14.42 K/uL (4.8-10.8) Red Blood Count 4.64 M/uL (4.7-6.1) Hemoglobin 14.9 g/dL (14.0-18.0) Hematocrit 42.3 % (42-52) Mean Corpuscular Volume 91.2 fL (80-100) Mean Corpuscular Hemoglobin 32.1 pg (25-34) Mean Corpuscular Hemoglobin Concent 35.2 g/dl (32-36) Platelet Count 175 K/uL (130-400) Mean Platelet Volume 8.0 fL (7.4-10.4) Neutrophils (%) (Auto) 84.7 % Lymphocytes (%) (Auto) 6.9 % Monocytes (%) (Auto) 7.3 % Eosinophils (%) (Auto) 0.8 % Basophils (%) (Auto) 0.1 % Neutrophils # (Auto) 12.20 K/uL (1.4-6.5) Lymphocytes # (Auto) 1.00 K/uL (1.2-3.4) Monocytes # (Auto) 1.05 K/uL (0.11-0.59) Eosinophils # (Auto) 0.12 K/uL (0-0.5) Basophils # (Auto) 0.02 K/uL (0-0.2) RDW Standard Deviation 44.0 fL (36.4-46.3) RDW Coefficient of Variation 13.3 % (11.5-14.5) Immature Granulocyte % (Auto) 0.2 % Immature Granulocyte # (Auto) 0.03 K/uL (0.00-0.02) Prothrombin Time 10.4 SECONDS (9.0-12.0) Prothromb Time International Ratio 1.0 (0.9-1.1) Activated Partial Thromboplast Time 27.8 SECONDS (21.0-31.0) Partial Thromboplastin Ratio 1.1 Anion Gap 8.0 mmol/L (3-11) Est Creatinine Clear Calc Drug Dose 80.8 ml/min Estimated GFR () 94.6 Estimated GFR (Non- 81.6 BUN/Creatinine Ratio 13.9 (10-20) Estimated Average Glucose 105 mg/dl Hemoglobin A1c 5.3 % (4.5-5.6) Calcium Level 8.4 mg/dl (8.5-10.1) Total Bilirubin 0.5 mg/dl (0.2-1) Aspartate Amino Transf (AST/SGOT) 11 U/L (15-37) Alanine Aminotransferase (ALT/SGPT) 31 U/L (12-78) Alkaline Phosphatase 86 U/L (45-117) Total Protein 6.6 gm/dl (6.4-8.2) Albumin 3.2 gm/dl (3.4-5.0) Globulin 3.4 gm/dl (2.5-4.0) Albumin/Globulin Ratio 0.9 (0.9-2) Procalcitonin 0.06 ng/ml (0-0.5) Influenza Type A Antigen Neg for Influ A (NEG) Influenza Type B Antigen Neg for Influ B (NEG) Bedside Lactic Acid Venous 2.10 mmol/L (0.90-1.70) Laboratory results per my review. Medications Administered Medications (Trade) Dose Ordered Sig/Joey Route Start Time Stop Time Status Last Admin Dose Admin Sodium Chloride 500 ml @ 999 mls/hr Q31M ONCE IV 12/10/17 05:22 12/10/17 05:52 DC 12/10/17 05:43 999 MLS/HR Sodium Chloride 500 ml @ 999 mls/hr Q31M ONCE IV 12/10/17 05:22 12/10/17 05:52 DC 12/10/17 05:44 999 MLS/HR Piperacillin Sod/ Tazobactam Sod (Zosyn Iv) 4.5 gm NOW STAT IV 12/10/17 05:24 12/10/17 05:25 DC 12/10/17 05:45 4.5 GM Sodium Chloride 1,000 ml @ 999 mls/hr Q1H1M STAT IV 12/10/17 06:03 12/10/17 07:06 DC 12/10/17 06:00 999 MLS/HR Albuterol/ Ipratropium (Duoneb) 3 ml UD STAT INH 12/10/17 06:15 12/10/17 06:38 DC 12/10/17 07:02 3 ML Procedure 0522: Ordered NSS 500 ml @ 999 mls/hr IV, NSS 500 ml @ 999 mls/hr IV. 0524: Ordered Zosyn Iv 4.5 gm IV. 0603: Ordered NSS 1000 ml @ 999 mls/hr IV, 0637: Ordered NSS 1000 ml @ 250 mls/hr IV. ECG Indication: SOB/dyspnea Rate (beats per minute): 98 Rhythm: normal sinus Findings: no acute ischemic change, no ectopy ED Course 0525: Past medical records reviewed. The patient was evaluated in room B2. A complete history and physical exam was performed. A septic protocol was performed. The patient had a twelve-lead EKG and will go for chest x-ray. The 12-lead EKG was interpreted by me. 0529: Ordered NSS 500 ml @ 999 mls/hr IV, NSS 500 ml @ 999 mls/hr IV. 0532: Ordered Zosyn Iv 4.5 gm IV. 0552: The patient coughed up a blackish green substance. This will be sent for sputum culture. 0603: Ordered NSS 1000 ml @ 999 mls/hr IV. 0604: Discussed the patient's case with Dr. Roberts. The patient will be evaluated for further management. 0637: Ordered NSS 1000 ml @ 250 mls/hr IV. 0650: I interpreted the patient's EKG at this time. Medical Decision The patient is a 67 year old male who presents to the Emergency Room with complaints of a sudden fever starting 3.5 hours ago. Differential diagnoses include influenza, sepsis, aspiration pneumonia, bronchitis. LABS: Lactic acid 2.1 White count 14.4 Stable H&H Sodium 131 Normal renal function Glucose 110 Normal LFTs Negative Flu Normal Coags this is a 67-year-old male patient with a history of sepsis and pneumonia presents to the emergency department with fever, chest tightness and shortness of breath. Chest x-ray indicates a right basilar infiltrate consistent with pneumonia. The patient has a history of recent overfeeding with tube feeds and reflux to suggest aspiration pneumonia. The patient was treated with IV Zosyn. He was fluid resuscitated with more than 2 L of normal saline solution as he was persistently hypotensive. The patient has a long-standing history of being hypertensive. The blood pressure did seem to come up with the crystalloid therapy. I discussed the case with the [facility] Hospitalist and they will evaluate for further management. Medication Reconcilliation Current Medication List: was personally reviewed by me Blood Pressure Screening Patient's blood pressure: Low blood pressure Will be further monitored by the hospitalist. Consults Time Called: 0600 Consulting Physician: Dr. Roberts Returned Call: [phone] Discussed the patient's case with Dr. Roberts. The patient will be evaluated for further management. Impression Primary Impression: Septic shock Additional Impression: Right lower lobe pneumonia Critical Care I have personally spent greater than 30 minutes of critical care time in the direct management of this patient. This includes bedside care, interpretation of diagnostic studies, and testing, discussion with consultants, patient, and family members, and other required patient management activities. This 30 minutes is in excess of all separately billable procedures. Scribe Attestation The scribe's documentation has been prepared under my direction and personally reviewed by me in its entirety. I confirm that the note above accurately reflects all work, treatment, procedures, and medical decision making performed by me. Departure Information Dispostion Being Evaluated By Hospitalist Referrals Vinayak Dumont III, M.D. (PCP) Patient Instructions My [facility] Problem Qualifiers Additional Impression: Right lower lobe pneumonia Pneumonia type: aspiration pneumonia
[2017-12-11] VITALS (10 sets, daily range): BP systolic 108–140; BP diastolic 68–90; PULSE 69–89; TEMP 36.4–36.7; O2SAT 94–98
[2017-12-11] MEDS: IPRATROPIUM BROMIDE NEB SOLN 0.02% 2.5 ML VIAL INH SCH ×4 (01:43→19:32)
[2017-12-11] MEDS: LEVALBUTEROL 1.25MG/0.5ML NEB INH SCH ×4 (01:43→19:32)
[2017-12-11] MEDS: PIPERACILL/TAZOBAC IV 4.5 GM in DEXTROSE 5% 100ML IV SCH ×3 (03:15→18:34)
[2017-12-11] MEDS: LORAZEPAM 2 MG/ML 1 ML VIAL IV PRN (03:15)
[2017-12-11 05:52] LABS: BASO % 0.1 %; BASO ABS # 0.01 K/uL (0-0.2); EOS % 0.7 %; EOS ABS # 0.07 K/uL (0-0.5); HEMATOCRIT 38.3 % (42-52); IG# 0.03 K/uL (0.00-0.02); LYMPH % 13.3 %; LYMPH ABS # 1.25 K/uL (1.2-3.4); MEAN CELL VOLUME 91.8 fL (80-100); MEAN CORPUSCULAR HEMOGLOBIN 31.2 pg (25-34); MEAN CORPUSCULAR HGB CONC 33.9 g/dl (32-36); MEAN PLATELET VOLUME 8.2 fL (7.4-10.4); MONO % 8.3 %; MONO ABS # 0.78 K/uL (0.11-0.59); NEUT % 77.3 %; NEUT ABS # 7.23 K/uL (1.4-6.5); PLATELET COUNT 142 K/uL (130-400); RED CELL DISTRIBUTION WIDTH CV 13.3 % (11.5-14.5); RED CELL DISTRIBUTION WIDTH SD 44.3 fL (36.4-46.3); WHITE BLOOD COUNT 9.37 K/uL (4.8-10.8)
[2017-12-11 06:36] LABS: CREATININE 0.59 mg/dl (0.60-1.40); POTASSIUM 3.9 mmol/L (3.5-5.1)
[2017-12-11] MEDS: INSULIN ASPART 100 UNITS/ML 3 ML PEN SC SCH ×4 (06:42→20:51)
[2017-12-11] MEDS: [UNRECOGNIZED DRUG - REMARK] SCH ×2 (07:27→20:48)
[2017-12-11] MEDS: LANSOPRAZOLE SOLUTAB 30 MG PEG SCH (07:29)
[2017-12-11] MEDS: ENOXAPARIN 40 MG/0.4 ML SYR SC SCH (07:30)
[2017-12-11] MEDS: SIMVASTATIN 20 MG TAB PEG SCH (07:30)
[2017-12-11] MEDS: INSULIN GLARGINE SOLOSTAR 100 UNITS/ML 3 ML PEN SC SCH (07:31)
--- NOTE | 2017-12-11 11:16 | Progress Note ---
Internal Med Progress Note Date of Service: Dec 11, 2017. Provider Documentation: SUBJECTIVE: Seen and examined at bedside Feels much better today Chronic cough Denies SOB, chest pain, dizziness, abd pain No new complaints OBJECTIVE: Vital Signs-as noted below Physical Exam: General Appearance:Moderately built and nourished, no apparent distress Head: normocephalic, Atraumatic Eyes: normal inspection, EOMI, PERRL Neck: supple, Trachea midline Respiratory/Chest: Decreased breath sounds, B/L rhonchi, scattered wheezes Cardiovascular: S1, S2, No murmur Abdomen/GI:Soft, Non tender, Bowel sounds present, +Peg Tube Extremities/Musculoskelatal:normal inspection, no edema Neurologic/Psych:AAOX3, grossly no focal neurological deficits Skin: normal color, warm Lab data as noted below. ASSESSMENT & PLAN: Sepsis Aspiration Pneumonia H/O Recurrent Aspiration Outpatient CT Chest suggestive of Bronchiectasis from chronic aspiration Follows with (Pul) as outpatient Flu screen:negative Strict NPO Aspiration precautions Continue IV zosyn Day # 2 Received IV solumedrol and Doxycycline in ED Lactate:1.6, Procalcitonin:0.06 DC IV fluids, BP much improved Continue Nebs, Prednisone Pulmonary Toilet Appreciate Pulmonology Input CXR: Right basilar opacity suggestive of pneumonia, Left lung opacity Blood cultures:pending Sputum cultures:Group B strep and Staph.aureus Hypomagnesemia: Resolved Monitor Chronic hyponatremia: Monitor Sodium levels 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 * The left ventricular wall motion is normal. * Left ventricular systolic function is normal. * The LV Ejection Fraction = 60-65%. * The right ventricle is normal size. * The right ventricular systolic function is normal as assessed by tricuspid annular plane systolic excursion (TAPSE) (normal >1.5 cm). * There is trace tricuspid regurgitation. * Doppler findings do not suggest pulmonary hypertension. * Grade I diastolic dysfunction, (abnormal relaxation pattern). CXR: 1. Right basilar opacity suggestive of pneumonia. Radiographic follow-up to ensure resolution is recommended. 2. Minimal left lower lung opacity which could reflect an infectious process or atelectasis. Outpatient CT scan (1 week Prior): 1. Mild diffuse bronchial wall thickening and bronchiectasis. Findings are most consistent with the clinical history of chronic aspiration. 2. Diffuse tree-in-bud and nodular airspace opacities, likely representing an infectious or inflammatory process, probably secondary to aspiration. 3. Soft tissue thickening in the right supraglottic region, which may reflect postsurgical changes of thyroplasty. Correlation with clinical history and outside imaging, if available , is recommended for further evaluation. Direct visual inspection and/or CT neck with contrast may also be of benefit. 4. Chronic and incidental findings as above. Vital Signs: Date Time Temp Pulse Resp B/P (MAP) Pulse Ox O2 Delivery O2 Flow Rate FiO2 12/11/17 08:00 98 Nasal Cannula 2.0 12/11/17 08:00 36.7 78 18 140/90 (107) 98 Nasal Cannula 2.0 12/11/17 07:25 69 16 96 Nasal Cannula 2.0 12/11/17 04:00 36.4 71 22 108/68 (81) 95 Nasal Cannula 2.0 12/11/17 04:00 Room Air 12/11/17 01:44 73 16 98 Room Air 12/10/17 23:59 36.7 65 22 129/68 (88) 97 Nasal Cannula 2.0 12/10/17 23:59 Room Air 12/10/17 20:00 36.7 85 18 117/70 (86) 98 Room Air 12/10/17 20:00 Room Air 12/10/17 18:53 79 16 96 Room Air 12/10/17 16:08 84 16 96 Room Air 12/10/17 16:00 36.4 69 20 97/61 (73) 95 Room Air 12/10/17 16:00 95 Room Air 12/10/17 12:00 99 Nasal Cannula 2.0 12/10/17 12:00 36.9 73 18 92/56 (68) 99 Nasal Cannula 2.0 Lab Results: Results Past 24 Hours Test 12/10/17 15:52 12/10/17 22:21 12/11/17 05:39 12/11/17 06:40 Range/Units Bedside Glucose 209 136 162 70-99 mg/dl White Blood Count 9.37 4.8-10.8 K/uL Red Blood Count 4.17 4.7-6.1 M/uL Hemoglobin 13.0 14.0-18.0 g/dL Hematocrit 38.3 42-52 % Mean Corpuscular Volume 91.8 80-100 fL Mean Corpuscular Hemoglobin 31.2 25-34 pg Mean Corpuscular Hemoglobin Concent 33.9 32-36 g/dl Platelet Count 142 130-400 K/uL Mean Platelet Volume 8.2 7.4-10.4 fL Neutrophils (%) (Auto) 77.3 % Lymphocytes (%) (Auto) 13.3 % Monocytes (%) (Auto) 8.3 % Eosinophils (%) (Auto) 0.7 % Basophils (%) (Auto) 0.1 % Neutrophils # (Auto) 7.23 1.4-6.5 K/uL Lymphocytes # (Auto) 1.25 1.2-3.4 K/uL Monocytes # (Auto) 0.78 0.11-0.59 K/uL Eosinophils # (Auto) 0.07 0-0.5 K/uL Basophils # (Auto) 0.01 0-0.2 K/uL RDW Standard Deviation 44.3 36.4-46.3 fL RDW Coefficient of Variation 13.3 11.5-14.5 % Immature Granulocyte % (Auto) 0.3 % Immature Granulocyte # (Auto) 0.03 0.00-0.02 K/uL Sodium Level 136 136-145 mmol/L Potassium Level 3.9 3.5-5.1 mmol/L Chloride Level 104 98-107 mmol/L Carbon Dioxide Level 28 21-32 mmol/L Anion Gap 4.0 3-11 mmol/L Blood Urea Nitrogen 14 7-18 mg/dl Creatinine 0.59 0.60-1.40 mg/dl Est Creatinine Clear Calc Drug Dose 132.9 ml/min Estimated GFR () 123.1 Estimated GFR (Non- 106.2 BUN/Creatinine Ratio 23.9 10-20 Random Glucose 109 70-99 mg/dl Calcium Level 8.0 8.5-10.1 mg/dl Magnesium Level 2.2 1.8-2.4 mg/dl Test 12/11/17 11:05 Range/Units Bedside Glucose 177 70-99 mg/dl
--- NOTE | 2017-12-11 14:23 | PULMONARY PROGRESS NOTE ---
DATE: 12/11/2017 TIME: 1:45 p.m. SUBJECTIVE: The patient is feeling much better. His cough is much less. He has not had any significant shortness of breath. He denies chills, fevers or sweats. OBJECTIVE: GENERAL: The patient appeared comfortable. Temperature is 36.7. He has had no fevers of significance since admission. ENT: Unremarkable. VITAL SIGNS: Heart rate was 78 per minute. Blood pressure 129/78. Respiratory rate 18 breaths per minute. LUNGS: Lung garcia revealed mild scattered rhonchi bilaterally. Oxygen saturation was 94% on room air. EXTREMITIES: Showed no edema. LABORATORY AND DIAGNOSTIC DATA: Sputum culture is positive for group B beta strep and staph aureus. It is unknown if it is methicillin sensitive or methicillin resistant. Those sensitivities are still pending. Blood cultures are pending. White count today is 9.37. Yesterday, it was 14.42. Hemoglobin today is 13. Platelets 142,000. Coags were normal. BUN was 14 with a creatinine of 0.59. IMPRESSIONS: 1. Aspiration pneumonia -- secondary to group B beta strep and staph aureus. 2. Chronic obstructive pulmonary disease. 3. Bronchiectasis by history. COMMENTS AND RECOMMENDATIONS: The patient is doing well. He is on Zosyn, which I would continue pending the results of the cultures. He does not seem to be tight. I believe the prednisone could be decreased starting tomorrow to 30 mg daily with a gradual taper thereafter. He is still getting the nebulizer treatments. If the patient continues to improve, he will likely not need prolonged hospitalization. I am off of the pulmonary service as of tomorrow. If you need my successors to see the patient with any problems, please feel free to call the service. The patient does follow up with [facility] pulmonary.
[2017-12-11] MEDS: LORAZEPAM INJ 0.5 MG in SYRINGE 0.75 ML IV PRN (23:10)
[2017-12-12] VITALS (10 sets, daily range): BP systolic 132–145; BP diastolic 86–94; PULSE 72–86; TEMP 36.6–36.8; O2SAT 91–99
[2017-12-12] MEDS ORDERED: NURSING DECISION MEDICATION ORDER SCH (01:15)
[2017-12-12] MEDS ORDERED: SODIUM CHLORIDE 0.65% NA SOLN 45 ML (OCEAN) ONE (01:36)
[2017-12-12] MEDS: PIPERACILL/TAZOBAC IV 4.5 GM in DEXTROSE 5% 100ML IV SCH (01:39)
[2017-12-12] MEDS ORDERED: SODIUM CHLORIDE 0.65% NA SOLN 45 ML (OCEAN) PRN (01:45)
[2017-12-12] MEDS: LEVALBUTEROL 1.25MG/0.5ML NEB INH SCH ×4 (02:13→19:44)
[2017-12-12] MEDS: IPRATROPIUM BROMIDE NEB SOLN 0.02% 2.5 ML VIAL INH SCH ×4 (02:13→19:44)
[2017-12-12] MEDS: LORAZEPAM INJ 0.5 MG in SYRINGE 0.75 ML IV PRN (04:05)
[2017-12-12 07:02] LABS: HEMATOCRIT 38.1 % (42-52); HEMOGLOBIN 13.2 g/dL (14.0-18.0); MEAN CORPUSCULAR HEMOGLOBIN 31.9 pg (25-34); MEAN CORPUSCULAR HGB CONC 34.6 g/dl (32-36); MEAN PLATELET VOLUME 8.1 fL (7.4-10.4); PLATELET COUNT 147 K/uL (130-400); RED CELL DISTRIBUTION WIDTH CV 13.2 % (11.5-14.5); RED CELL DISTRIBUTION WIDTH SD 44.1 fL (36.4-46.3); WHITE BLOOD COUNT 7.24 K/uL (4.8-10.8)
[2017-12-12 07:33] LABS: CALCIUM 8.6 mg/dl (8.5-10.1); CREATININE 0.67 mg/dl (0.60-1.40); POTASSIUM 4.1 mmol/L (3.5-5.1)
[2017-12-12] MEDS: [UNRECOGNIZED DRUG - REMARK] SCH ×2 (08:46→21:11)
[2017-12-12] MEDS: SIMVASTATIN 20 MG TAB PEG SCH (09:49)
[2017-12-12] MEDS: LANSOPRAZOLE SOLUTAB 30 MG PEG SCH (09:50)
[2017-12-12] MEDS: INSULIN ASPART 100 UNITS/ML 3 ML PEN SC SCH ×4 (09:51→21:00)
[2017-12-12] MEDS: ENOXAPARIN 40 MG/0.4 ML SYR SC SCH (09:51)
[2017-12-12] MEDS: PIPERACILL/TAZOBAC IV 3.375 GM in DEXTROSE 5% 100ML 100 ML IV SCH ×2 (09:59→17:47)
[2017-12-12] MEDS: INSULIN GLARGINE SOLOSTAR 100 UNITS/ML 3 ML PEN SC SCH (10:00)
[2017-12-12] MEDS ORDERED: ZOLPIDEM TARTRATE 5 MG TAB PO PRN (13:00)
--- NOTE | 2017-12-12 13:06 | Progress Note ---
Internal Med Progress Note Date of Service: Dec 12, 2017. Provider Documentation: SUBJECTIVE: Seen and examined at bedside Doing well today Chronic cough Denies SOB, chest pain, dizziness, abd pain No new complaints Reports Insomnia OBJECTIVE: Vital Signs-as noted below Physical Exam: General Appearance:Moderately built and nourished, no apparent distress Head: normocephalic, Atraumatic Eyes: normal inspection, EOMI, PERRL Neck: supple, Trachea midline Respiratory/Chest: Decreased breath sounds, CTA Cardiovascular: S1, S2, No murmur Abdomen/GI:Soft, Non tender, Bowel sounds present, +Peg Tube Extremities/Musculoskelatal:normal inspection, no edema Neurologic/Psych:AAOX3, grossly no focal neurological deficits Skin: normal color, warm Lab data as noted below. ASSESSMENT & PLAN: Sepsis Aspiration Pneumonia H/O Recurrent Aspiration Outpatient CT Chest suggestive of Bronchiectasis from chronic aspiration Follows with (Pulm) as outpatient Flu screen:negative Strict NPO Aspiration precautions Continue IV zosyn Day # 3, Plan to switch PO antibiotics tomorrow Received IV solumedrol and Doxycycline in ED Lactate:1.6, Procalcitonin:0.06 DC IV fluids, BP much improved Continue Nebs, Prednisone taper to complete 5 days in total Pulmonary Toilet Appreciate Pulmonology Input CXR: Right basilar opacity suggestive of pneumonia, Left lung opacity Blood cultures:No growth to date Sputum cultures:Group B strep and Staph.aureus Hypomagnesemia: Resolved Monitor Chronic hyponatremia: resolved Monitor Sodium levels 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 * The left ventricular wall motion is normal. * Left ventricular systolic function is normal. * The LV Ejection Fraction = 60-65%. * The right ventricle is normal size. * The right ventricular systolic function is normal as assessed by tricuspid annular plane systolic excursion (TAPSE) (normal >1.5 cm). * There is trace tricuspid regurgitation. * Doppler findings do not suggest pulmonary hypertension. * Grade I diastolic dysfunction, (abnormal relaxation pattern). CXR: 1. Right basilar opacity suggestive of pneumonia. Radiographic follow-up to ensure resolution is recommended. 2. Minimal left lower lung opacity which could reflect an infectious process or atelectasis. Outpatient CT scan (1 week Prior): 1. Mild diffuse bronchial wall thickening and bronchiectasis. Findings are most consistent with the clinical history of chronic aspiration. 2. Diffuse tree-in-bud and nodular airspace opacities, likely representing an infectious or inflammatory process, probably secondary to aspiration. 3. Soft tissue thickening in the right supraglottic region, which may reflect postsurgical changes of thyroplasty. Correlation with clinical history and outside imaging, if available , is recommended for further evaluation. Direct visual inspection and/or CT neck with contrast may also be of benefit. 4. Chronic and incidental findings as above. Vital Signs: Date Time Temp Pulse Resp B/P (MAP) Pulse Ox O2 Delivery O2 Flow Rate FiO2 12/12/17 11:23 36.7 82 18 136/88 (104) 98 Room Air 12/12/17 09:50 Room Air 12/12/17 08:36 36.7 78 18 141/94 (110) 91 Room Air 12/12/17 07:27 80 16 93 Room Air 12/12/17 04:00 36.6 80 20 145/86 (105) 96 Room Air 12/12/17 02:15 77 16 93 Room Air 12/12/17 00:00 36.6 73 20 133/91 (105) 94 Room Air 12/12/17 00:00 Room Air 12/11/17 20:00 36.5 84 20 135/78 (97) 94 Room Air 12/11/17 19:34 75 16 96 Room Air 12/11/17 16:45 Nasal Cannula 2.0 12/11/17 15:00 36.7 89 18 132/83 (99) 95 Room Air 12/11/17 14:18 76 16 96 Room Air Lab Results: Results Past 24 Hours Test 12/11/17 17:30 12/11/17 20:27 12/12/17 06:23 Range/Units Bedside Glucose 158 164 70-99 mg/dl White Blood Count 7.24 4.8-10.8 K/uL Red Blood Count 4.14 4.7-6.1 M/uL Hemoglobin 13.2 14.0-18.0 g/dL Hematocrit 38.1 42-52 % Mean Corpuscular Volume 92.0 80-100 fL Mean Corpuscular Hemoglobin 31.9 25-34 pg Mean Corpuscular Hemoglobin Concent 34.6 32-36 g/dl RDW Standard Deviation 44.1 36.4-46.3 fL RDW Coefficient of Variation 13.2 11.5-14.5 % Platelet Count 147 130-400 K/uL Mean Platelet Volume 8.1 7.4-10.4 fL Sodium Level 136 136-145 mmol/L Potassium Level 4.1 3.5-5.1 mmol/L Chloride Level 101 98-107 mmol/L Carbon Dioxide Level 29 21-32 mmol/L Anion Gap 6.0 3-11 mmol/L Blood Urea Nitrogen 12 7-18 mg/dl Creatinine 0.67 0.60-1.40 mg/dl Est Creatinine Clear Calc Drug Dose 92.8 ml/min Estimated GFR () 116.9 Estimated GFR (Non- 100.8 BUN/Creatinine Ratio 18.3 10-20 Random Glucose 90 70-99 mg/dl Calcium Level 8.6 8.5-10.1 mg/dl Magnesium Level 2.1 1.8-2.4 mg/dl Thyroid Stimulating Hormone (TSH) 2.140 0.300-4.500 uIu/ml Free Thyroxine 0.82 0.80-1.60 ng/dl
[2017-12-13] VITALS (10 sets, daily range): BP systolic 127–173; BP diastolic 87–109; PULSE 67–87; TEMP 36.4–36.7; O2SAT 91–95
[2017-12-13] MEDS: LEVALBUTEROL 1.25MG/0.5ML NEB INH SCH ×2 (01:43→07:38)
[2017-12-13] MEDS: IPRATROPIUM BROMIDE NEB SOLN 0.02% 2.5 ML VIAL INH SCH ×2 (01:43→07:38)
[2017-12-13] MEDS: PIPERACILL/TAZOBAC IV 3.375 GM in DEXTROSE 5% 100ML 100 ML IV SCH (01:47)
[2017-12-13] MEDS: INSULIN ASPART 100 UNITS/ML 3 ML PEN SC SCH (06:30)
[2017-12-13 07:36] LABS: CALCIUM 8.9 mg/dl (8.5-10.1); CREATININE 0.66 mg/dl (0.60-1.40); POTASSIUM 3.4 mmol/L (3.5-5.1)
[2017-12-13] MEDS: [UNRECOGNIZED DRUG - REMARK] SCH (08:00)
[2017-12-13] MEDS: LANSOPRAZOLE SOLUTAB 30 MG PEG SCH (09:04)
[2017-12-13] MEDS: SIMVASTATIN 20 MG TAB PEG SCH (09:04)
[2017-12-13] MEDS: INSULIN GLARGINE SOLOSTAR 100 UNITS/ML 3 ML PEN SC SCH (09:12)
[2017-12-13] MEDS: ENOXAPARIN 40 MG/0.4 ML SYR SC SCH (09:14)
[2017-12-13] MEDS ORDERED: LISINOPRIL 2.5 MG TAB PEG SCH (09:45)
[2017-12-13] MEDS ORDERED: POTASSIUM CHLORIDE PWD 20 MEQ PACK PO ONE (09:45)
--- NOTE | 2017-12-13 10:12 | Progress Note ---
Internal Med Progress Note Date of Service: Dec 13, 2017. Provider Documentation: SUBJECTIVE: Seen and examined at bedside Doing well No new complaints Chronic cough Denies SOB, chest pain, dizziness, abd pain Family at bedside OBJECTIVE: Vital Signs-as noted below Physical Exam: General Appearance:Moderately built and nourished, no apparent distress Head: normocephalic, Atraumatic Eyes: normal inspection, EOMI, PERRL Neck: supple, Trachea midline Respiratory/Chest: Decreased breath sounds, CTA Cardiovascular: S1, S2, No murmur Abdomen/GI:Soft, Non tender, Bowel sounds present, +Peg Tube Extremities/Musculoskelatal:normal inspection, no edema Neurologic/Psych:AAOX3, grossly no focal neurological deficits Skin: normal color, warm Lab data as noted below. ASSESSMENT & PLAN: Sepsis Aspiration Pneumonia H/O Recurrent Aspiration Outpatient CT Chest suggestive of Bronchiectasis from chronic aspiration Follows with (Pulm) as outpatient Flu screen:negative Strict NPO Aspiration precautions Continue IV zosyn Day # 3, Will Switch to Augmentin today Received IV solumedrol and Doxycycline in ED Lactate:1.6, Procalcitonin:0.06 DC IV fluids, BP much improved Continue Nebs, Prednisone taper to complete 5 days in total Pulmonary Toilet Appreciate Pulmonology Input CXR: Right basilar opacity suggestive of pneumonia, Left lung opacity Blood cultures:No growth to date Sputum cultures:Group B strep and Staph.aureus Hypokalemia/Hypomagnesemia: Monitor Chronic hyponatremia: Monitor Sodium levels 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 Franco on Dec 29, 2017 at 8:45AM Follow up with your Residential Program Worker in 2 weeks Complete the antibiotic and prednisone course as prescribed Seek immediate medical attention if your symptoms reoccur or worsen PROCEDURES: ECHO: * There is borderline concentric left ventricular hypertrophy. * The left ventricular wall motion is normal. * Left ventricular systolic function is normal. * The LV Ejection Fraction = 60-65%. * The right ventricle is normal size. * The right ventricular systolic function is normal as assessed by tricuspid annular plane systolic excursion (TAPSE) (normal >1.5 cm). * There is trace tricuspid regurgitation. * Doppler findings do not suggest pulmonary hypertension. * Grade I diastolic dysfunction, (abnormal relaxation pattern). CXR: 1. Right basilar opacity suggestive of pneumonia. Radiographic follow-up to ensure resolution is recommended. 2. Minimal left lower lung opacity which could reflect an infectious process or atelectasis. Outpatient CT scan (1 week Prior): 1. Mild diffuse bronchial wall thickening and bronchiectasis. Findings are most consistent with the clinical history of chronic aspiration. 2. Diffuse tree-in-bud and nodular airspace opacities, likely representing an infectious or inflammatory process, probably secondary to aspiration. 3. Soft tissue thickening in the right supraglottic region, which may reflect postsurgical changes of thyroplasty. Correlation with clinical history and outside imaging, if available , is recommended for further evaluation. Direct visual inspection and/or CT neck with contrast may also be of benefit. 4. Chronic and incidental findings as above. Vital Signs: Date Time Temp Pulse Resp B/P (MAP) Pulse Ox O2 Delivery O2 Flow Rate FiO2 12/13/17 07:41 87 16 93 Room Air 12/13/17 07:23 36.4 81 16 149/106 (120) 91 Room Air 12/13/17 03:53 156/101 (119) 12/13/17 03:43 36.7 82 18 173/109 (130) 94 Room Air 12/13/17 01:49 127/87 (100) 12/13/17 01:45 69 16 95 Room Air 12/13/17 00:07 36.5 67 18 162/104 (123) 94 Room Air 12/12/17 23:35 Room Air 12/12/17 19:50 36.6 78 20 132/88 (103) 99 Room Air 12/12/17 19:46 86 16 95 Room Air 12/12/17 16:15 36.8 83 18 143/93 (110) 95 Room Air 12/12/17 16:10 Room Air 12/12/17 14:23 72 16 96 Room Air 12/12/17 11:23 36.7 82 18 136/88 (104) 98 Room Air Lab Results: Results Past 24 Hours Test 12/12/17 13:14 12/12/17 17:30 12/12/17 20:22 12/13/17 06:25 Range/Units Bedside Glucose 138 201 172 70-99 mg/dl Sodium Level 134 136-145 mmol/L Potassium Level 3.4 3.5-5.1 mmol/L Chloride Level 99 98-107 mmol/L Carbon Dioxide Level 27 21-32 mmol/L Anion Gap 8.0 3-11 mmol/L Blood Urea Nitrogen 12 7-18 mg/dl Creatinine 0.66 0.60-1.40 mg/dl Est Creatinine Clear Calc Drug Dose 118.8 ml/min Estimated GFR () 117.6 Estimated GFR (Non- 101.5 BUN/Creatinine Ratio 18.0 10-20 Random Glucose 136 70-99 mg/dl Calcium Level 8.9 8.5-10.1 mg/dl Magnesium Level 2.3 1.8-2.4 mg/dl Test 12/13/17 07:29 Range/Units Bedside Glucose 142 70-99 mg/dl
--- NOTE | 2017-12-13 10:24 | Discharge Instructions ---
Discharge Instructions Date of Service Dec 13, 2017. Admission Reason for Admission: Respiratory Failure,Acute Discharge Discharge Diagnosis / Problem: Aspiration Pneumonia, Sepsis Discharge Goals Goal(s): Decrease discomfort, Improve function Activity Recommendations Activity Limitations: resume your previous activity Exercise/Sports Limitations: as tolerated . Instructions / Follow-Up Instructions / Follow-Up Follow up with your Primary Care Physician on Dec 16, 2017 at 11: 05AM Follow up with your Shade Cloth Finisher Dr. Franco on Dec 29, 2017 at 8:45AM Follow up with your Duplicating Machine Operator in 2 weeks Complete the antibiotic and prednisone course as prescribed Seek immediate medical attention if your symptoms reoccur or worsen Current Hospital Diet Patient's current hospital diet: Discharge Diet Recommended Diet: N/A (Tube Feeds) Pending Studies Studies pending at discharge: no Laboratory Results Hemoglobin A1c Test 12/10/17 05:28 Range/Units Estimated Average Glucose 105 mg/dl Hemoglobin A1c 5.3 4.5-5.6 % Medical Emergencies . Who to Call and When: Medical Emergencies: If at any time you feel your situation is an emergency, please call 911 immediately. . Non-Emergent Contact Non-Emergency issues call your: Primary Care Provider, Shade Cloth Finisher, Duplicating Machine Operator Call Non-Emergent contact if: you have a fever, your pain is not controlled, your pain is worsening, your pain is unusual for you, your pain is concerning you, you have any medication questions Seek immediate medical attention if your symptoms reoccur or worsen . . "Provider Documentation" section prepared by Kenn Sosa. . VTE Core Measure Inpt VTE Proph given/why not?: Enoxaparin (Lovenox)SQ
[2017-12-13] MEDS ORDERED: LCTX PO (10:29)
[2017-12-13] MEDS ORDERED: PRED10TA PO (10:29)
[2017-12-13] MEDS ORDERED: AMOX400S2 PO (10:29)
--- NOTE | 2017-12-13 10:29 | Discharge Summary ---
Discharge Summary Date of Service Dec 13, 2017. Discharge Summary Admission Date: Dec 10, 2017 at 06:21 Discharge Date: Dec 13, 2017 Discharge Disposition: Home Principal Diagnosis: Aspiration Pneumonia, Sepsis Procedures: CXR: 1. Right basilar opacity suggestive of pneumonia. Radiographic follow-up to ensure resolution is recommended. 2. Minimal left lower lung opacity which could reflect an infectious process or atelectasis. ECHO: * There is borderline concentric left ventricular hypertrophy. * The left ventricular wall motion is normal. * Left ventricular systolic function is normal. * The LV Ejection Fraction = 60-65%. * The right ventricle is normal size. * The right ventricular systolic function is normal as assessed by tricuspid annular plane systolic excursion (TAPSE) (normal >1.5 cm). * There is trace tricuspid regurgitation. * Doppler findings do not suggest pulmonary hypertension. * Grade I diastolic dysfunction, (abnormal relaxation pattern). Consultations: Pulmonology Pending Studies/Follow-Up: Follow up with your Primary Care Physician on Dec 16, 2017 at 11: 05AM Follow up with your Edger Machine Operator Dr. Franco on Dec 29, 2017 at 8:45AM Follow up with your Manager Supply in 2 weeks Complete the antibiotic and prednisone course as prescribed Seek immediate medical attention if your symptoms reoccur or worsen Medication Reconciliation New Medications: Prednisone Tab (Prednisone) 10 Mg Tab 10 MG PO UD for 4 Days, #6 TAB Start taking 20mg daily for 2 days, then 10mg daily for 2 days and stop Amoxicillin & Pot Clavulanate (Amoxicillin/Clavulanate P) 1 Gerri Gerri 10.9 ML PO BIDM for 6 Days Lactobacillus Acidophilus (Floranex) 1 Tab Tab 4 TAB PO TIDM for 10 Days, #30 TAB Continued Medications: Albuterol Sulf (Proventil 0.083% 2.5MG/3ML) 2.5 Mg/3 Ml Nebu 2.5 MG INH Q6H PRN for Shortness of Breath, EA Atenolol (Tenormin) 25 Mg Tab 25 MG PEG QAM, TAB Azelastine Hcl (Astelin Nasal [place]) 200 Sprays/30 Ml [place] 1 SPRAY FRANDY BID, #30 Cholecalciferol (Vitamin D3) 1,000 Unit Tab 1 TAB PO QAM for 90 Days, #90 TAB 3 Refills Enteral Nutrition Formula (Peptamen 1.5) 1 Can Liqd 1 CAN PEG 5XD, CAN Lansoprazole (Prevacid) 30 Mg Capcr 30 MG PEG QAM, CAP Lisinopril (Zestril) 2.5 Mg Tab 1 TAB PEG QAM Loratadine (Claritin) 10 Mg Tab 10 MG PEG QAM PRN for allergy, TAB Lorazepam (Ativan) 1 Mg Tab 1 MG SL DIRECTED PRN for anxiety, TAB Metformin Hcl Er (Glucophage Er) 500 Mg Tab 500 MG PEG QAM, TAB Ranitidine Hcl (Zantac) 300 Mg Tab 300 MG PEG HS PRN for ACID REFLUX, TAB Simvastatin (Zocor) 20 Mg Tab 20 MG PEG QAM, TAB Admission Information HPI (per Admitting provider): CHIEF COMPLAINT: Cough, fever, weakness. HISTORY OF PRESENT ILLNESS: History obtain from the patient, , and records. Medical history is significant for recurrent aspiration pneumonia sp PEG tube placement, COPD, past tobacco abuse, hypertension, DM2 on oral medications, prediabetes as per records on metformin, tonsillar cancer status post chemoradiation, Bobby's palsy as per records. Recent confinement in last March 2017 for possible aspiration pneumonia. Last few days, the patient noted to have chest tightness, cough, dry to wet productive yellow sputum, may have aspirated after an episode of reflux which he attributed to more than usual amount of tube feedings. Fevers and chills at home. Increasing shortness of breath. Denies flu-like symptoms. Patient brought to the Emergency Room. SBP initially 90s. Zosyn, IVF given for sepsis. As per patient's , blood pressure at home on the low side of late. Patient complaining of dizziness/lightheadedness symptoms when getting up. Physical Exam (per Admitting): PHYSICAL EXAMINATION: VITAL SIGNS: Blood pressure was noted to be 96/58, pulse rate 108, RR 24, temperature 37.1, sats 94 on 2 liters. GENERAL: Noted to be in minimal respiratory distress, unkempt SKIN: Warm, normal color. HEENT: [place] palpebral conjunctivae. No ptosis. Dry buccal mucosa. Old facial asymmetry. Nasal cannula in place NECK: Supple, nontender. CHEST: Occasional wheeze. No tenderness. HEART: Tachycardic. No murmur ABDOMEN: Some distension, nontender. PEG tube in place. EXTREMITIES: No edema, no tenderness. No gross deformities NEUROLOGIC: Coherent. No gross focality except for old facial asymmetry. Hospital Course Sepsis Aspiration Pneumonia H/O Recurrent Aspiration Outpatient CT Chest suggestive of Bronchiectasis from chronic aspiration Follows with (Pulm) as outpatient Flu screen:negative Strict NPO Aspiration precautions Continue IV zosyn Day # 3, Will Switch to Augmentin today Received IV solumedrol and Doxycycline in ED Lactate:1.6, Procalcitonin:0.06 DC IV fluids, BP much improved Continue Nebs, Prednisone taper to complete 5 days in total Pulmonary Toilet Appreciate Pulmonology Input CXR: Right basilar opacity suggestive of pneumonia, Left lung opacity Blood cultures:No growth to date Sputum cultures:Group B strep and Staph.aureus Hypokalemia/Hypomagnesemia: Monitor Chronic hyponatremia: Monitor Sodium levels 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 Franco on Dec 29, 2017 at 8:45AM Follow up with your Manager Supply in 2 weeks Complete the antibiotic and prednisone course as prescribed Seek immediate medical attention if your symptoms reoccur or worsen PROCEDURES: ECHO: * There is borderline concentric left ventricular hypertrophy. * The left ventricular wall motion is normal. * Left ventricular systolic function is normal. * The LV Ejection Fraction = 60-65%. * The right ventricle is normal size. * The right ventricular systolic function is normal as assessed by tricuspid annular plane systolic excursion (TAPSE) (normal >1.5 cm). * There is trace tricuspid regurgitation. * Doppler findings do not suggest pulmonary hypertension. * Grade I diastolic dysfunction, (abnormal relaxation pattern). CXR: 1. Right basilar opacity suggestive of pneumonia. Radiographic follow-up to ensure resolution is recommended. 2. Minimal left lower lung opacity which could reflect an infectious process or atelectasis. Outpatient CT scan (1 week Prior): 1. Mild diffuse bronchial wall thickening and bronchiectasis. Findings are most consistent with the clinical history of chronic aspiration. 2. Diffuse tree-in-bud and nodular airspace opacities, likely representing an infectious or inflammatory process, probably secondary to aspiration. 3. Soft tissue thickening in the right supraglottic region, which may reflect postsurgical changes of thyroplasty. Correlation with clinical history and outside imaging, if available , is recommended for further evaluation. Direct visual inspection and/or CT neck with contrast may also be of benefit. 4. Chronic and incidental findings as above. Total time spent on discharge = 34 minutes This includes examination of the patient, discharge planning, medication reconciliation, and communication with other providers. Discharge Instructions Discharge Instructions Date of Service Dec 13, 2017. Admission Reason for Admission: Respiratory Failure,Acute Discharge Discharge Diagnosis / Problem: Aspiration Pneumonia, Sepsis Discharge Goals Goal(s): Decrease discomfort, Improve function Activity Recommendations Activity Limitations: resume your previous activity Exercise/Sports Limitations: as tolerated . Instructions / Follow-Up Instructions / Follow-Up Follow up with your Primary Care Physician on Dec 16, 2017 at 11: 05AM Follow up with your Edger Machine Operator Dr. Franco on Dec 29, 2017 at 8:45AM Follow up with your Manager Supply in 2 weeks Complete the antibiotic and prednisone course as prescribed Seek immediate medical attention if your symptoms reoccur or worsen Current Hospital Diet Patient's current hospital diet: Discharge Diet Recommended Diet: N/A (Tube Feeds) Pending Studies Studies pending at discharge: no Laboratory Results Hemoglobin A1c Test 12/10/17 05:28 Range/Units Estimated Average Glucose 105 mg/dl Hemoglobin A1c 5.3 4.5-5.6 % Medical Emergencies . Who to Call and When: Medical Emergencies: If at any time you feel your situation is an emergency, please call 911 immediately. . Non-Emergent Contact Non-Emergency issues call your: Primary Care Provider, Edger Machine Operator, Manager Supply Call Non-Emergent contact if: you have a fever, your pain is not controlled, your pain is worsening, your pain is unusual for you, your pain is concerning you, you have any medication questions Seek immediate medical attention if your symptoms reoccur or worsen . . "Provider Documentation" section prepared by Kenn Sosa. . VTE Core Measure Inpt VTE Proph given/why not?: Enoxaparin (Lovenox)SQ <Electronically signed by Kenn Sosa MD> Signed: 12/13/17 1024 Signed: The status of this report is Signed * If report status is Draft, the document has not been finalized by the responsible provider.
[2017-12-13] MEDS ORDERED: LACTOBACILLUS ACIDOPHILUS (FLORANEX) TAB PO SCH (12:00)
[2017-12-13] MEDS ORDERED: AMOXICILLIN/CLAVULANATE SUSP 400 MG/5 ML PO SCH (17:00)
== END 2017-12-13 12:45 | disposition home or self-care (01) | DRG 871 ==
LOC: C.EDB 04:43 → C.MSICU 06:21 → ENRESERV 06:41 → C.4E 12-11 12:22
PROVIDERS: ADMIT Internal Medicine; ATTEND Internal Medicine
DX: A41.9 Sepsis, unspecified organism (principal); J69.0 Pneumonitis due to inhalation of food and vomit; J96.01 Acute respiratory failure with hypoxia; J44.0 Chronic obstructive pulmonary disease with (acute) lower respiratory infection; E87.1 Hypo-osmolality and hyponatremia; I10 Essential (primary) hypertension; E11.9 Type 2 diabetes mellitus without complications; E83.42 Hypomagnesemia; J38.01 Paralysis of vocal cords and larynx, unilateral; G51.0 Bell's palsy; Z79.84 Long term (current) use of oral hypoglycemic drugs; Z79.899 Other long term (current) drug therapy; Z87.01 Personal history of pneumonia (recurrent); Z85.818 Personal history of malignant neoplasm of other sites of lip, oral cavity, and pharynx; Z87.891 Personal history of nicotine dependence; Z92.3 Personal history of irradiation; Z93.1 Gastrostomy status; Z91.030 Bee allergy status; Z91.013 Allergy to seafood